=== PATIENT | male | born 1945 | race Caucasian/White ===

== ENCOUNTER 2021-12-30 11:02 | Outpatient (CLI) | payer MEDICARE, SELFPAY ==
[2021-12-30 11:26] LABS: Albumin* 4.5 g/dL (3.3-5.0)
[2021-12-30 11:27] LABS: Chloride* 105 mmol/L (96-114); Potassium* 4.9 mmol/L (3.6-5.1); Sodium* 138 mmol/L (135-149)
[2021-12-30 11:29] LABS: Aspartate Amino Transferase* 44 U/L (12-35); Bilirubin Total* 0.9 mg/dL (0.1-1.5); Blood Urea Nitrogen* 12 mg/dL (7-30); Carbon Dioxide* 25 mmol/L (20-32); Cholesterol* 186 mg/dL (90-199); Creatinine* 0.7 mg/dL (0.5-1.5); Estimated Glomerular Filt Rate 94 ml/min; Glucose* 97 mg/dL (60-115); Total Protein* 7.4 g/dL (6.0-8.3)
[2021-12-30 11:30] LABS: Alanine Aminotransferase* 27 U/L (4-50); Alkaline Phosphatase* 94 U/L (40-150); Calcium* 9.4 mg/dL (8.4-10.6); HDL Cholesterol* 52 mg/dL (>=40); LDL Cholesterol Calculated 118 mg/dL (<100); Triglycerides* 80 mg/dL (40-149)
[2021-12-30 11:57] LABS: PSA Screen* 0.62 ng/mL (0.10-4.00)
== END 2021-12-30 11:03 | disposition home or self-care (01) ==
PROVIDERS: PCP Family Medicine; Visit Provider Family Medicine
DX: E03.9 Hypothyroidism, unspecified (principal); E78.5 Hyperlipidemia, unspecified; Z12.5 Encounter for screening for malignant neoplasm of prostate
CPT/HCPCS: 80053; 80061; 84153; 84443

== ENCOUNTER 2022-06-02 19:27 | Observation (INO) | payer MEDICARE, SELFPAY ==
[2022-06-02] VITALS (22 sets, daily range): BP systolic 160–204; BP diastolic 79–100; PULSE 58–85; RESP 16–20; TEMP 37.3; O2SAT 96–100; BMI 25.1
--- NOTE | 2022-06-02 19:33 | ED.GENADULT ---
HPI - General Adult General Time Seen by Provider: 19:33 Date Seen: 06/02/22 Chief complaint: Neuro Symptoms/Altered Deficit Stated complaint: Confused Time Seen by Provider: 06/02/22 19:33 Source: patient, family ( is present) and RN notes reviewed Mode of arrival: ambulatory Limitations: no limitations History of Present Illness HPI narrative: Patient is a 76-year-old male brought in by family for concern of memory issues. Patient was fine yesterday, fine for most of the day today. He cannot tell me when he woke up, cannot tell me anything he has done today. He thinks he may have been working around the house but not able to provide specific details. His notes they were in [place] and had T earlier. He took a nap around 130 and got up about 330. He then proceeded to go to [employer], drove himself. She states when he got up at 3:30 a.m. he seemed normal. He came home from [employer], replaced a door handle, they heard him down stairs with the chain saw and went down to see what he was doing. It was then that they discovered he was not acting normally, could not remember anything. They winter in [place], have another home in [facility]. He does not remember being there last week. He cannot tell me what day it is, what year it is, what month it is. His notes he had a concussion last year, did fall on the ice this past and hit his head but was seemingly normal between earlier today and the time of the fall. Nursing staff thought maybe he had a slight droop on the left corner of his mouth and called a stroke code, I was there in attendance as soon as there was a concern regarding stroke. Related Data Home Medications Medication Instructions Recorded Confirmed aspirin 81 mg tablet,delayed 81 mg PO .QOD 01/06/22 05/06/22 release (Adult Aspirin Regimen) Previous Rx's Medication Instructions Recorded sildenafil 50 mg tablet 25 - 100 mg PO QDAY PRN sexual 01/16/22 activity #20 tabs Synthroid 125 mcg tablet 125 mcg PO QDAY #90 tabs 02/17/22 (levothyroxine) Allergies Allergy/AdvReac Type Severity Reaction Status Date / Time Sulfa (Sulfonamide Allergy Mild Hives Verified 06/02/22 19:46 Antibiotics) Review of Systems Status of ROS: Reports: 10 or more systems reviewed and unremarkable except as noted in History and below 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 Hebert 08/12/17 note. Transient global amnesia See scanned 04/10/15 [facility] neuro note. Carotid atherosclerosis Rodrigo bifurcations, mild. See scanned [facility] neuro note 04/10/15. Hypothyroidism Abstracted [facility] record. Dyslipidemia Abstracted [facility] record. Hearing loss Abstracted [facility] record. Peyronie's disease Abstracted [facility] record. Retinal microaneurysm, right eye Abstracted [facility] record. History of electroencephalogram 04/11/15, essentially normal. See scanned report. Surgical Problems: S/P hernia repair History of colonoscopy 11/20/10. Rcmnd 10Y repeat. No report, per [facility] record. Highest level of school completed/degree received: Master's degree Smoking Status: Never smoker Second hand tobacco smoke exposure: No How often do you have a drink containing alcohol: 2-3 times a week Alcohol type: other Alcohol type details: Daryl santana AUDIT-C Alcohol total score: 3 Non-prescribed substance use: marijuana (any form) Caffeine: Yes Little interest or pleasure in doing things: not at all Feeling down, depressed, or hopeless: not at all service: Yes Exam Const: Vital Signs, click to edit/add: Vital Signs - 24 hr 06/02/22 19:43 06/02/22 20:02 06/02/22 22:34 Temperature 99.1 F Pulse Rate Pulse Rate [Pulse Oximeter] 74 85 Respiratory Rate 20 16 Blood Pressure Blood Pressure [Ri ght Upper Arm] 193/99 H 160/86 H Pulse Oximetry 98 96 97 Oxygen Delivery Me thod Room Air Room Air 06/02/22 20:08 06/02/22 20:15 06/02/22 20:17 Temperature Pulse Rate 63 63 62 Pulse Rate [Pulse Oximeter] Respiratory Rate Blood Pressure 173/92 H Blood Pressure [Ri ght Upper Arm] Pulse Oximetry 98 98 98 Oxygen Delivery Me thod 06/02/22 20:30 06/02/22 20:32 06/02/22 20:47 Temperature Pulse Rate 68 68 61 Pulse Rate [Pulse Oximeter] Respiratory Rate Blood Pressure 168/85 H 191/96 H Blood Pressure [Ri ght Upper Arm] Pulse Oximetry 97 98 98 Oxygen Delivery Sc thod 06/02/22 20:48 06/02/22 21:00 06/02/22 21:02 Temperature Pulse Rate 63 60 66 Pulse Rate [Pulse Oximeter] Respiratory Rate Blood Pressure 172/98 H Blood Pressure [Ri ght Upper Arm] Pulse Oximetry 98 98 97 Oxygen Delivery Sc thod 06/02/22 21:15 06/02/22 21:17 06/02/22 21:30 Temperature Pulse Rate 68 67 69 Pulse Rate [Pulse Oximeter] Respiratory Rate Blood Pressure 175/88 H Blood Pressure [Ri ght Upper Arm] Pulse Oximetry 99 99 98 Oxygen Delivery Sc thod 06/02/22 21:32 06/02/22 21:45 06/02/22 21:47 Temperature Pulse Rate 70 58 L 58 L Pulse Rate [Pulse Oximeter] Respiratory Rate Blood Pressure 168/100 H 163/87 H Blood Pressure [Ri ght Upper Arm] Pulse Oximetry 98 100 99 Oxygen Delivery Sc thod 06/02/22 22:00 06/02/22 22:02 06/02/22 22:15 Temperature Pulse Rate 65 58 L 60 Pulse Rate [Pulse Oximeter] Respiratory Rate Blood Pressure 162/79 H Blood Pressure [Ri ght Upper Arm] Pulse Oximetry 97 98 97 Oxygen Delivery Sc thod 06/02/22 22:17 Temperature Pulse Rate 61 Pulse Rate [Pulse Oximeter] Respiratory Rate Blood Pressure 204/97 H Blood Pressure [Ri ght Upper Arm] Pulse Oximetry 99 Oxygen Delivery Me thod Documenting provider has reviewed patient's vital signs: yes Common normals: no apparent distress, average body habitus, healthy appearing, alert and well nourished General appearance: cooperative, comfortable, well kempt and well developed HENMT: Common normals: normocephalic, head/scalp atraumatic, hearing grossly normal bilaterally (With hearing aids in), external ears normal, external nose normal, nasal mucous membranes and turbinates normal, moist oral mucous membranes and oropharynx normal Head and scalp: normocephalic and atraumatic Nose: external nose normal and nasal mucous membranes and turbinates normal External ear: external ears normal Eye: Common normals: PERRL, EOMs intact bilaterally, conjunctivae normal and no scleral icterus Conjunctiva: conjunctiva(e) normal Pupil: PERRL Neck & C-Spine: Common normals: full ROM, no lymphadenopathy, supple, no meningeal signs, no JVD and thyroid normal Thyroid: thyroid normal Resp: Common normals: normal respiratory effort, no retractions, no use of accessory muscles and clear to auscultation bilaterally Auscultation: clear to auscultation bilaterally Cardio: Common normals: no JVD, regular rate, regular rhythm, S1 normal heart sound, S2 normal heart sound, no gallops, no clicks and no murmurs Rate: regular rate Rhythm: regular rhythm Heart sounds: S1 normal and S2 normal GI: Common normals: Normal to inspection, nondistended, normoactive bowel sounds present, soft to palpation, non-tender, no hepatosplenomegaly and no masses Palpation: soft and no hepatosplenomegaly Back & Pelvis: Common normals: thoracic and lumbar spine normal to inspection and no thoracic nor lumbar tenderness Extremity: Common normals: normal to inspection, full ROM, normal capillary refill, no joint enlargement, no clubbing, cyanosis or edema, no calf tenderness and no pedal edema Neuro: Mcintosh Coma Scale: document GCS findings Mcintosh coma scale eye opening: Spontaneous (4) Mcintosh coma scale verbal response: Orientated (5) Flo coma scale motor response: Obey commands (6) Flo coma scale total score: 15 Common normals: CN's II-XII intact bilaterally, moves all extremities, no focal motor deficits, no sensory deficits noted and gait normal Sensorium/orientation: alert Meningeal signs: no meningeal signs Speech: speech normal Other: I do not appreciate any facial drooping. He can closes eyes symmetrically, can puff out his cheeks without any difficulty and is symmetric. He has no immediate recollection of events but is able to tell as addresses of where he lives, his date of , knows his . It is seeming that his short-term memory is most affected here. Psych: Appearance: well ket Course Course Hospital Course: Patient's only identifiable neurologic changes memory which seems to be more short-term from what I can gather. Will have him on cardiac monitoring and pulse oximetry. We will get a head CT given that he had a recent fall. This could be an atypical presentation of a late brain bleed. Other intracranial pathology such as tumor small distribution stroke I suppose is possible. I note no motor neurologic deficits at this time. Will get appropriate labs. He will be monitored here. It is possible that we have a patient that is exhibiting recurrent transient global amnesia. Reevaluation(s) Reevaluation #1: Reviewed with patient that his head CT is not showing any acute change. He does not remember me questioning him or meeting me before but is starting to remember events. He does remember driving to [employer] but can not exactly remember what he purchased. He does not remember being down stairs with a chain saw. He does remember going to tea with his earlier today. His daughter is here now. Reviewed that his EKG was normal. Reviewed that I a need to see all of his labs still. He is obviously clearing. He does remember being diagnosed with transient global amnesia awhile back. He is now able to tell me it is 2022. Reviewed with him that he did not know what year it was when I 1st question him, he states he does not even remember me being in the room. He does not remember getting a head CT at this point. Will need to collect a screening COVID. notes that they both had COVID back in February. Time: 20:46 Consultations Consultation #1: Consulting radiology did inform me of normal/negative head CT results. Time: 20:18 Consultation #2: Spoke with the neurologist on-call at [place] Dr. Christine contreras. I had initially spoke with her about 9:02 p.m. but she had to get off the phone to take an emergent stroke call. She kindly called back at her 1st available moment and we reviewed the patient's case in entirety. She noted that she would be concerned about this being seizure activity as on his EEG in 2015 or 16 when he had it there was left temporal sharp waves but otherwise no eliptiform abnormality or EEG evidence of seizure. His MRI of his neck and brain showed some mild stenotic changes. She did suggest that we get an MRI, she was okay with this waiting until tomorrow as we do not have the capacity to do it in the evenings or after hours. She did recommend doing the CTA of his head neck. Patient is completely lucid at this time, or remembers me from coming in the 2nd time but still has amnesia for some events around coming in here. He still does not remember getting his head CT. Did subsequently speak with Dr. Macario the hospitalist. This patient has otherwise no neurologic changes. I cannot in vision that there is any way that there is going to be any large vessel occlusion that would be requiring treatment given his current status. If his imaging is not showing any reason for his symptoms, then he can be discharged for outpatient neurology an outpatient EEG. I have reviewed with him that he cannot drive until given clearance by Neurology. Time: 21:57 Vital Signs Vital signs: Initial Vital Signs Temperature 99.1 F 06/02/22 19:43 Temperature Source Temporal Artery Scan 06/02/22 19:43 Pulse Rate 74 06/02/22 19:43 Pulse Rhythm 06/02/22 19:43 Pulse Strength 3+ Normal 06/02/22 19:43 Respiratory Rate 20 06/02/22 19:43 Blood Pressure 193/99 H 06/02/22 19:43 Blood Pressure Mean 130 06/02/22 19:43 Pulse Oximetry 98 06/02/22 19:43 Oxygen Delivery Method 06/02/22 19:43 Vital Signs Temperature 99.1 F 06/02/22 19:43 Pulse Rate 74 06/02/22 19:43 Respiratory Rate 20 06/02/22 19:43 Blood Pressure 193/99 H 06/02/22 19:43 Pulse Oximetry 98 06/02/22 19:43 Oxygen Delivery Method 06/02/22 19:43 Temperature 97.7 F 06/03/22 00:05 Pulse Rate 69 06/03/22 00:05 Respiratory Rate 16 06/03/22 00:05 Blood Pressure 173/91 H 06/03/22 00:05 Pulse Oximetry 99 06/03/22 00:05 Oxygen Delivery Method 06/03/22 00:05 Medical Decision Making Medical Records Medical records narrative: In his list of medical diagnoses that transferred over from the prior record, can see notation of a [facility] note from 04/10/2015 from Neurology that is reportedly scanned into our old EMR. This was documenting transient global amnesia. I will go back into our old record and see if I can find that. Lab Data Lab results reviewed: Yes I reviewed the patient's lab results Labs: Lab Results 06/02/22 06/02/22 06/02/22 Range/Units 19:41 19:41 19:41 WBC 6.49 (4.50-11.00) K/uL RBC 5.18 (4.30-5.90) m/uL Hgb 15.8 (13.5-17.5) gm/dL Hct 47.6 (37.0-53.0) % MCV 92 (80-100) fL MCH 31 (26-34) pg MCHC 33 (32-36) gm/dL RDW Coeff of Sky 13.0 (11.5-15.5) % Plt Count 251 (140-440) K/uL Neut % (Auto) 47.7 (42.0-72.0) % Lymph % (Auto) 35.1 (20-44) % [place] % (Auto) 9.6 (0.0-11.0) % Eos % (Auto) 6.2 (0.0-7.0) % Baso % (Auto) 0.5 (0.0-3.0) % Neut # (Auto) 3.10 (1.7-7.0) K/uL Lymph # (Auto) 2.28 (0.90-2.90) K/uL [place] # (Auto) 0.60 (0.00-0.90) K/UL Eos # (Auto) 0.40 (0.00-0.50) K/uL Baso # (Auto) 0.03 (0.00-0.30) K/uL ESR 5 (2-15) mm/hr Sodium 139 (135-149) mmol/L Potassium 4.3 (3.6-5.1) mmol/L Chloride 108 (96-114) mmol/L Carbon Dioxide 25 (20-32) mmol/L BUN 14 (7-30) mg/dL Creatinine 0.8 (0.5-1.5) mg/dL Estimated Creat Clear 66.82 Estimated GFR 91 ml/min Glucose 114 (60-115) mg/dL Lactate (0.5-1.9) mmol/L Calcium 9.0 (8.4-10.6) mg/dL Total Bilirubin 0.5 (0.1-1.5) mg/dL AST 25 (12-35) U/L ALT 25 (4-50) U/L Alkaline Phosphatase 90 (40-150) U/L C-Reactive Protein 0.5 (0.5-1.0) mg/dL Total Protein 7.9 (6.0-8.3) g/dL Albumin 4.4 (3.3-5.0) g/dL Urine Color (Yellow) Urine Appearance (Clear) Urine pH (5.0-8.5) Ur Specific [place] (1.000-1.030) Urine Protein (Negative) Urine Glucose (UA) (Negative) Urine Ketones (Negative) Urine Blood (Negative) Urine Nitrite (Negative) Urine Bilirubin (Negative) Urine Urobilinogen (0.2-1.0) Ur Leukocyte Esterase (Negative) Urine RBC (0-2) Urine WBC (0-5) Ur Squamous Epith Cells (None-Few) Urine Bacteria (None) Urine Opiates Screen (Negative) Ur Oxycodone Screen (Negative) Urine Methadone Screen (Negative) Ur Propoxyphene Screen (Negative) Ur Barbiturates Screen (Negative) U Tricyclic Antidepress (Negative) Ur Phencyclidine Scrn (Negative) Ur Amphetamines Screen (Negative) U Methamphetamines Scrn (Negative) U Benzodiazepines Scrn (Negative) Urine Cocaine Screen (Negative) U Marijuana (THC) Screen (Negative) Ur Drug Screen Comment Ethyl Alcohol < 0.01 L (0.01-0.03) % SARS-CoV-2 (PCR) (Negative) Influenza Type A (PCR) (Negative) Influenza Type B (PCR) (Negative) 06/02/22 06/02/22 06/02/22 Range/Units 19:41 22:10 23:00 WBC (4.50-11.00) K/uL RBC (4.30-5.90) m/uL Hgb (13.5-17.5) gm/dL Hct (37.0-53.0) % MCV (80-100) fL MCH (26-34) pg MCHC (32-36) gm/dL RDW Coeff of Sky (11.5-15.5) % Plt Count (140-440) K/uL Neut % (Auto) (42.0-72.0) % Lymph % (Auto) (20-44) % [place] % (Auto) (0.0-11.0) % Eos % (Auto) (0.0-7.0) % Baso % (Auto) (0.0-3.0) % Neut # (Auto) (1.7-7.0) K/uL Lymph # (Auto) (0.90-2.90) K/uL [place] # (Auto) (0.00-0.90) K/UL Eos # (Auto) (0.00-0.50) K/uL Baso # (Auto) (0.00-0.30) K/uL ESR (2-15) mm/hr Sodium (135-149) mmol/L Potassium (3.6-5.1) mmol/L Chloride (96-114) mmol/L Carbon Dioxide (20-32) mmol/L BUN (7-30) mg/dL Creatinine (0.5-1.5) mg/dL Estimated Creat Clear Estimated GFR ml/min Glucose (60-115) mg/dL Lactate 1.0 (0.5-1.9) mmol/L Calcium (8.4-10.6) mg/dL Total Bilirubin (0.1-1.5) mg/dL AST (12-35) U/L ALT (4-50) U/L Alkaline Phosphatase (40-150) U/L C-Reactive Protein (0.5-1.0) mg/dL Total Protein (6.0-8.3) g/dL Albumin (3.3-5.0) g/dL Urine Color Yellow (Yellow) Urine Appearance Clear (Clear) Urine pH 5.5 (5.0-8.5) Ur Specific [place] 1.015 (1.000-1.030) Urine Protein Negative (Negative) Urine Glucose (UA) Negative (Negative) Urine Ketones Trace A (Negative) Urine Blood Negative (Negative) Urine Nitrite Negative (Negative) Urine Bilirubin Negative (Negative) Urine Urobilinogen 0.2 (0.2-1.0) Ur Leukocyte Esterase Negative (Negative) Urine RBC 0-2 (0-2) Urine WBC 0-2 (0-5) Ur Squamous Epith Cells Few (None-Few) Urine Bacteria Few A (None) Urine Opiates Screen (Negative) Ur Oxycodone Screen (Negative) Urine Methadone Screen (Negative) Ur Propoxyphene Screen (Negative) Ur Barbiturates Screen (Negative) U Tricyclic Antidepress (Negative) Ur Phencyclidine Scrn (Negative) Ur Amphetamines Screen (Negative) U Methamphetamines Scrn (Negative) U Benzodiazepines Scrn (Negative) Urine Cocaine Screen (Negative) U Marijuana (THC) Screen (Negative) Ur Drug Screen Comment Ethyl Alcohol (0.01-0.03) % SARS-CoV-2 (PCR) Negative SARS-CoV-2 (Negative) Influenza Type A (PCR) Negative PCR FLU A (Negative) Influenza Type B (PCR) Negative PCR FLU B (Negative) 06/02/22 Range/Units 23:00 WBC (4.50-11.00) K/uL RBC (4.30-5.90) m/uL Hgb (13.5-17.5) gm/dL Hct (37.0-53.0) % MCV (80-100) fL MCH (26-34) pg MCHC (32-36) gm/dL RDW Coeff of Sky (11.5-15.5) % Plt Count (140-440) K/uL Neut % (Auto) (42.0-72.0) % Lymph % (Auto) (20-44) % [place] % (Auto) (0.0-11.0) % Eos % (Auto) (0.0-7.0) % Baso % (Auto) (0.0-3.0) % Neut # (Auto) (1.7-7.0) K/uL Lymph # (Auto) (0.90-2.90) K/uL [place] # (Auto) (0.00-0.90) K/UL Eos # (Auto) (0.00-0.50) K/uL Baso # (Auto) (0.00-0.30) K/uL ESR (2-15) mm/hr Sodium (135-149) mmol/L Potassium (3.6-5.1) mmol/L Chloride (96-114) mmol/L Carbon Dioxide (20-32) mmol/L BUN (7-30) mg/dL Creatinine (0.5-1.5) mg/dL Estimated Creat Clear Estimated GFR ml/min Glucose (60-115) mg/dL Lactate (0.5-1.9) mmol/L Calcium (8.4-10.6) mg/dL Total Bilirubin (0.1-1.5) mg/dL AST (12-35) U/L ALT (4-50) U/L Alkaline Phosphatase (40-150) U/L C-Reactive Protein (0.5-1.0) mg/dL Total Protein (6.0-8.3) g/dL Albumin (3.3-5.0) g/dL Urine Color (Yellow) Urine Appearance (Clear) Urine pH (5.0-8.5) Ur Specific [place] (1.000-1.030) Urine Protein (Negative) Urine Glucose (UA) (Negative) Urine Ketones (Negative) Urine Blood (Negative) Urine Nitrite (Negative) Urine Bilirubin (Negative) Urine Urobilinogen (0.2-1.0) Ur Leukocyte Esterase (Negative) Urine RBC (0-2) Urine WBC (0-5) Ur Squamous Epith Cells (None-Few) Urine Bacteria (None) Urine Opiates Screen Negative (Negative) Ur Oxycodone Screen Negative (Negative) Urine Methadone Screen Negative (Negative) Ur Propoxyphene Screen Negative (Negative) Ur Barbiturates Screen Negative (Negative) U Tricyclic Antidepress Negative (Negative) Ur Phencyclidine Scrn Negative (Negative) Ur Amphetamines Screen Negative (Negative) U Methamphetamines Scrn Negative (Negative) U Benzodiazepines Scrn Negative (Negative) Urine Cocaine Screen Negative (Negative) U Marijuana (THC) Screen Negative (Negative) Ur Drug Screen Comment See Note Ethyl Alcohol (0.01-0.03) % SARS-CoV-2 (PCR) (Negative) Influenza Type A (PCR) (Negative) Influenza Type B (PCR) (Negative) Imaging Data CT scan - head: My impression: Did look at his head CT preliminarily, did not appreciate acute pathology but certainly need to await Radiology over-read. Radiologist's impression: Patient: RAFAEL HERNANDEZ Facility:?[facility] Patient ID:?[id number] Site Patient ID:?[id number]. Site :?[id number] Study:?CT Head w/o Contrast Stroke Protocol-06/02/2022 7:54:18 PM Ordering Physician:Katharine Fabian Final Report: INDICATION: sudden memory issues CT HEAD WITHOUT CONTRAST TECHNIQUE: Multiple axial CT images were performed through the head without intravenous contrast administration. COMPARISON: 05/03/[address] FINDINGS: No acute intracranial hemorrhage is identified. No extra-axial collections are evident and there is no mass effect or midline shift. There is mild diffuse age-related brain atrophy. Ventricular size and configuration are within normal limits for the patient`s age. Wells-white differentiation is within normal limits. There is unchanged mild patchy hypodensity in the periventricular white matter, a nonspecific finding which most likely reflects chronic small vessel ischemic change. Osseous structures are within normal limits and no fractures are seen. Included portions of the paranasal sinuses and mastoid air cells are normally aerated. IMPRESSION: 1. No acute intracranial abnormality identified. 2. Mild age-related brain atrophy and white matter hypodensity consistent with chronic small vessel ischemic change. Report called to Dr. Newberry at 8:18 pm. LEXX JESUS MD [employer] Please note that all CT scans at this facility use dose modulation, iterative reconstruction, and/or weight-based dosing when appropriate to reduce radiation dose to as low as reasonably achievable. Dictated by: Berry Jesus MD @ 06/02/2022 20:20:42 CT angio head neck: Radiologist's impression: Pending at time of admission. ECG Data Attestation: I personally reviewed and interpreted this ECG as follows: (Sinus rhythm, 75 beats per minute. No ischemia. QT corrected 419 milliseconds.) Prior ECG tracings: not available for review Critical Care Time Critical Care Time Critical Care Time: No Discharge Plan Discharge Clinical Impression: Memory change Patient Disposition: Admitted As Inpatient Condition: Stable
--- NOTE | 2022-06-02 19:41 | CRLHL7_ITS ---
For Patients: As a result of the Century Cures Act, medical imaging exams and procedure reports are released immediately into your electronic medical record. You may view this report before your referring provider. If you have questions, please contact your health care provider. INDICATION: sudden memory issues CT HEAD WITHOUT CONTRAST TECHNIQUE: Multiple axial CT images were performed through the head without intravenous contrast administration. COMPARISON: 05/03/[address] FINDINGS: No acute intracranial hemorrhage is identified. No extra-axial collections are evident and there is no mass effect or midline shift. There is mild diffuse age-related brain atrophy. Ventricular size and configuration are within normal limits for the patient`s age. Wells-white differentiation is within normal limits. There is unchanged mild patchy hypodensity in the periventricular white matter, a nonspecific finding which most likely reflects chronic small vessel ischemic change. Osseous structures are within normal limits and no fractures are seen. Included portions of the paranasal sinuses and mastoid air cells are normally aerated. IMPRESSION: 1. No acute intracranial abnormality identified. 2. Mild age-related brain atrophy and white matter hypodensity consistent with chronic small vessel ischemic change. Report called to Dr. Newberry at 8:18 pm. LEXX JESUS MD [employer] Please note that all CT scans at this facility use dose modulation, iterative reconstruction, and/or weight-based dosing when appropriate to reduce radiation dose to as low as reasonably achievable. Dictated by: Berry Jesus MD @ 06/02/2022 20:20:42 (Electronically Signed)
--- NOTE | 2022-06-02 19:42 | ED.NURSE ---
Patient brought back from triage immediately and provider in to see patient. EKG and IV also completed at this time.
[2022-06-02 19:57] LABS: Basophils Absolute Auto 0.03 K/uL (0.00-0.30); Basophils Percent Auto 0.5 % (0.0-3.0); Eosinophils Percent Auto 6.2 % (0.0-7.0); Hematocrit 47.6 % (37.0-53.0); Hemoglobin* 15.8 gm/dL (13.5-17.5); Immature Granulocytes Abs Auto 0.06 K/uL (0.00-0.30); Immature Granulocytes Pct Auto 0.9 %; Lymphocytes Absolute Auto 2.28 K/uL (0.90-2.90); Lymphocytes Percent Auto 35.1 % (20-44); Mean Corpuscular HGB Conc 33 gm/dL (32-36); Mean Corpuscular Hemoglobin 31 pg (26-34); Mean Corpuscular Volume 92 fL (80-100); Monocytes Percent Auto 9.6 % (0.0-11.0); Neutrophils Percent Auto 47.7 % (42.0-72.0); Platelet Count* 251 K/uL (140-440); Red Blood Count 5.18 m/uL (4.30-5.90); White Blood Count* 6.49 K/uL (4.50-11.00)
[2022-06-02 19:58] LABS: Slide Review Reflex No
--- NOTE | 2022-06-02 19:59 | ED.NURSE ---
While charting in the room, reports to nurse that she remembered her fell 4 days ago when they were in [place], [place] visiting family. It was an unwitnessed fall, pt cannot remember telling his he fell. Pt cannot remember the fall either. also reports pt was very nauseous last night before bed.
[2022-06-02 20:09] LABS: Albumin* 4.4 g/dL (3.3-5.0); Chloride* 108 mmol/L (96-114); Sodium* 139 mmol/L (135-149)
[2022-06-02 20:10] LABS: Potassium* 4.3 mmol/L (3.6-5.1)
[2022-06-02 20:11] LABS: Bilirubin Total* 0.5 mg/dL (0.1-1.5); Creatinine* 0.8 mg/dL (0.5-1.5); Est. Creatinine Clearance* 66.82; Estimated Glomerular Filt Rate 91 ml/min
[2022-06-02 20:12] LABS: Alanine Aminotransferase* 25 U/L (4-50); Alkaline Phosphatase* 90 U/L (40-150); Aspartate Amino Transferase* 25 U/L (12-35); Blood Urea Nitrogen* 14 mg/dL (7-30); Carbon Dioxide* 25 mmol/L (20-32); Glucose* 114 mg/dL (60-115); Total Protein* 7.9 g/dL (6.0-8.3)
[2022-06-02 20:15] LABS: C Reactive Protein* 0.5 mg/dL (0.5-1.0); Ethanol* < 0.01 % (0.01-0.03)
[2022-06-02 21:06] LABS: Erythrocyte SedimentationRate* 5 mm/hr (2-15)
--- NOTE | 2022-06-02 22:06 | CRLHL7_ITS ---
For Patients: As a result of the Century Cures Act, medical imaging exams and procedure reports are released immediately into your electronic medical record. You may view this report before your referring provider. If you have questions, please contact your health care provider. INDICATION: Acute stroke. TECHNIQUE: CTA head with contrast bolus tracking and 3D MIP reconstruction. FINDINGS: There is scattered intracranial atherosclerotic disease. There is otherwise normal opacification of the intracranial vasculature. There is no large vessel occlusion. No aneurysm is identified. IMPRESSION: Unremarkable head CTA. Please note that all CT scans at this facility use dose modulation, iterative reconstruction, and/or weight-based dosing when appropriate to reduce radiation dose to as low as reasonably achievable. Dictated by Ludwig Richards MD @ 06/03/2022 9:13:13 AM (Electronically Signed)
--- NOTE | 2022-06-02 22:06 | CRLHL7_ITS ---
For Patients: As a result of the Century Cures Act, medical imaging exams and procedure reports are released immediately into your electronic medical record. You may view this report before your referring provider. If you have questions, please contact your health care provider. INDICATION: Acute stroke. TECHNIQUE: CTA neck with contrast bolus tracking and 3D MIP reconstruction. FINDINGS: There is carotid atherosclerosis. There is no significant carotid or vertebral artery stenosis or dissection. The soft tissues of the neck are within normal limits. The cervical spine is in normal alignment. IMPRESSION: No significant carotid or vertebral artery stenosis or dissection. Please note that all CT scans at this facility use dose modulation, iterative reconstruction, and/or weight-based dosing when appropriate to reduce radiation dose to as low as reasonably achievable. Dictated by Ludwig Richards MD @ 06/03/2022 9:15:16 AM (Electronically Signed)
[2022-06-02 23:19] LABS: Appearance Urine Clear (Clear); Bilirubin Urine Negative (Negative); Blood Urine Negative (Negative); Color Urine Yellow (Yellow); Glucose Urine Negative (Negative); Ketones Urine Trace (Negative); Leukocyte Esterase Urine Negative (Negative); Nitrite Urine Negative (Negative); Protein Urine Negative (Negative); Specific Gravity Urine 1.015 (1.000-1.030); Urobilinogen Urine 0.2 (0.2-1.0); pH Urine 5.5 (5.0-8.5)
[2022-06-02 23:19] LABS: PCR FLU A Negative PCR FLU A (Negative); PCR FLU B Negative PCR FLU B (Negative)
[2022-06-02 23:20] LABS: Amphetamine Screen Urine Negative (Negative); Barbiturate Screen Urine Negative (Negative); Benzodiazepines Screen Urine Negative (Negative); Cannabinoid Screen Urine Negative (Negative); Cocaine Screen Urine Negative (Negative); Methadone Screen Urine Negative (Negative); Methamphetamines Screen Urine Negative (Negative); Opiate Screen Urine Negative (Negative); Oxycodone Screen Urine Negative (Negative); Phencyclidine Screen Urine Negative (Negative); Tricyclic Antidepressant Urine Negative (Negative)
[2022-06-02 23:28] LABS: SARS PCR* Negative SARS-CoV-2 (Negative)
[2022-06-02 23:43] LABS: Bacteria Urine Few; RBC Urine 0-2 (0-2); Squamous Epithelial Cell Urine Few (None-Few); WBC Urine 0-2 (0-5)
[2022-06-03 00:05] VITALS: BP 173/91; PULSE 69; RESP 16; TEMP 36.5; O2SAT 99; BMI 21.2
[2022-06-03 00:31] LABS: TSH With Reflex to FT4* 0.219 uIU/mL (0.270-4.200)
--- NOTE | 2022-06-03 01:03 | P.IMCN_ITS ---
Date of Consult Consult date: 06/03/22 Primary Care Provider: Rafa Ventura MD Consult Narrative Reason for consult: fall weakness Narrative: Brian Boo is a 77 year old male -year-old male with past medical history with alcohol intoxication and hyponatremia with multiple falls at home, hypertension, dementia, chronic hyponatremia who presented to the ED with gait instability. He lives at home with his elderly brother. Patient reported a fall on the ground by his brother with his son has been contacted to get him up. No LOC. No seizures. He was sent to the ED for further evaluation. In the ED vital signs shows blood pressure of 141/71, respiration rate of 16, heart rate of 45, patient satting well on room air. Labs show sodium of 129, potassium of 3.3, creatinine of 0.7, LFT are within no rmal limits. His albumin is 3.5, magnesium is 2.1 his CBC with differential shows WBC of 5.4, hemoglobin of 13.2, platelet of 198. COVID is negative. His CT head without contrast showed no acute large tentorial infarct, no intracranial hemorrhage or hematoma, no fracture is seen, multiple foci of acute sinusitis noted. Patient was attempted to ambulate in the ED but was unable to ambulate well therefore was requested for the patient to be admitted for further evaluation and treatment. 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 Hebert 08/12/17 note. Transient global amnesia See scanned 04/10/15 [place] neuro note. Carotid atherosclerosis Rodrigo bifurcations, mild. See scanned [place] neuro note 04/10/15. Hypothyroidism Abstracted [place] record. Dyslipidemia Abstracted [place] record. Hearing loss Abstracted [place] record. Peyronie's disease Abstracted [place] record. Retinal microaneurysm, right eye Abstracted [place] record. History of electroencephalogram 04/11/15, essentially normal. See scanned report. Surgical Problems: S/P hernia repair History of colonoscopy 11/20/10. Rcmnd 10Y repeat. No report, per [place] record. Highest level of school completed/degree received: Master's degree Smoking Status: Never smoker Second hand tobacco smoke exposure: No How often do you have a drink containing alcohol: 2-3 times a week Alcohol type: other Alcohol type details: Daryl santana AUDIT-C Alcohol total score: 3 Non-prescribed substance use: marijuana (any form) Caffeine: Yes Little interest or pleasure in doing things: not at all Feeling down, depressed, or hopeless: not at all service: Yes Meds Home Medications and Allergies Home Medications Medication Instructions Recorded Confirmed Type aspirin 81 mg tablet,delayed 81 mg PO .QOD 01/06/22 05/06/22 History release (Adult Aspirin Regimen) Allergies Allergy/AdvReac Type Severity Reaction Status Date / Time Sulfa (Sulfonamide Allergy Mild Hives Verified 06/02/22 19:46 Antibiotics) Exam Narrative: Exam Narrative: Exam (performed via interactive video with assistance of bedside nurse): General: [alert, cooperative, no acute distress] HEENT: [Pupils reported ERRL] [, oral mucosa pink and moist without erythema] Lungs: [clear to auscultation bilaterally without crackle or wheeze] CV: [regular rate and rhythm without loud murmur rub or gallop 1+ edmea in the LE b/l] Abd: [bowel sounds present, denies tenderness and does not exhibit signs of pain with palpation done by bedside nurse] Ext: [no pitting edema noted] Skin: [no rashes, bruises or lesions appreciated on gross visualization of exposed skin] Neuro: [alert, oriented x 3. CN III -VII, XI, XII grossly intact, moves all extremities without any significant focal deficit appreciated by nurse] Const: Vital Signs, click to edit/add: Vital Signs - 24 hr 06/02/22 19:43 06/02/22 20:02 06/02/22 22:34 Temperature 99.1 F Pulse Rate Pulse Rate [Left P ulse Oximeter] Pulse Rate [Pulse Oximeter] 74 85 Respiratory Rate 20 16 Blood Pressure Blood Pressure [Ri ght Arm] Blood Pressure [Ri ght Upper Arm] 193/99 H 160/86 H Pulse Oximetry 98 96 97 Oxygen Delivery Me thod Room Air Room Air 06/02/22 20:08 06/02/22 20:15 06/02/22 20:17 Temperature Pulse Rate 63 63 62 Pulse Rate [Left P ulse Oximeter] Pulse Rate [Pulse Oximeter] Respiratory Rate Blood Pressure 173/92 H Blood Pressure [Ri ght Arm] Blood Pressure [Ri ght Upper Arm] Pulse Oximetry 98 98 98 Oxygen Delivery Me thod 06/02/22 20:30 06/02/22 20:32 06/02/22 20:47 Temperature Pulse Rate 68 68 61 Pulse Rate [Left P ulse Oximeter] Pulse Rate [Pulse Oximeter] Respiratory Rate Blood Pressure 168/85 H 191/96 H Blood Pressure [Ri ght Arm] Blood Pressure [Ri ght Upper Arm] Pulse Oximetry 97 98 98 Oxygen Delivery Me thod 06/02/22 20:48 06/02/22 21:00 06/02/22 21:02 Temperature Pulse Rate 63 60 66 Pulse Rate [Left P ulse Oximeter] Pulse Rate [Pulse Oximeter] Respiratory Rate Blood Pressure 172/98 H Blood Pressure [Ri ght Arm] Blood Pressure [Ri ght Upper Arm] Pulse Oximetry 98 98 97 Oxygen Delivery Me thod 06/02/22 21:15 06/02/22 21:17 06/02/22 21:30 Temperature Pulse Rate 68 67 69 Pulse Rate [Left P ulse Oximeter] Pulse Rate [Pulse Oximeter] Respiratory Rate Blood Pressure 175/88 H Blood Pressure [Ri ght Arm] Blood Pressure [Ri ght Upper Arm] Pulse Oximetry 99 99 98 Oxygen Delivery Me thod 06/02/22 21:32 06/02/22 21:45 06/02/22 21:47 Temperature Pulse Rate 70 58 L 58 L Pulse Rate [Left P ulse Oximeter] Pulse Rate [Pulse Oximeter] Respiratory Rate Blood Pressure 168/100 H 163/87 H Blood Pressure [Ri ght Arm] Blood Pressure [Ri ght Upper Arm] Pulse Oximetry 98 100 99 Oxygen Delivery Me thod 06/02/22 22:00 06/02/22 22:02 06/02/22 22:15 Temperature Pulse Rate 65 58 L 60 Pulse Rate [Left P ulse Oximeter] Pulse Rate [Pulse Oximeter] Respiratory Rate Blood Pressure 162/79 H Blood Pressure [Ri ght Arm] Blood Pressure [Ri ght Upper Arm] Pulse Oximetry 97 98 97 Oxygen Delivery Me thod 06/02/22 22:17 06/03/22 00:05 Temperature 97.7 F Pulse Rate 61 Pulse Rate [Left P ulse Oximeter] 69 Pulse Rate [Pulse Oximeter] Respiratory Rate 16 Blood Pressure 204/97 H Blood Pressure [Ri ght Arm] 173/91 H Blood Pressure [Ri ght Upper Arm] Pulse Oximetry 99 99 Oxygen Delivery Me thod Room Air Labs Labs: Short CBC 06/02/22 Range/Units 19:41 WBC 6.49 (4.50-11.00) K/uL Hgb 15.8 (13.5-17.5) gm/dL Hct 47.6 (37.0-53.0) % Plt Count 251 (140-440) K/uL BMP 06/02/22 19:41 Sodium 139 Potassium 4.3 Chloride 108 Carbon Dioxide 25 BUN 14 Creatinine 0.8 Glucose 114 Calcium 9.0 Liver Function 06/02/22 Range/Units 19:41 Total Bilirubin 0.5 (0.1-1.5) mg/dL AST 25 (12-35) U/L ALT 25 (4-50) U/L Alkaline Phosphatase 90 (40-150) U/L Albumin 4.4 (3.3-5.0) g/dL Urine 06/02/22 Range/Units 23:00 Urine Color Yellow (Yellow) Urine Appearance Clear (Clear) Urine pH 5.5 (5.0-8.5) Ur Specific [place] 1.015 (1.000-1.030) Urine Protein Negative (Negative) Urine Glucose (UA) Negative (Negative) Assessment and Plan Assessment and plan (1) Memory change: Status: Acute (2) Epistaxis, recurrent: Status: Acute (3) Erectile dysfunction: Status: Acute (4) Fall: Status: Acute Plan # Weakness # hyponatremia with possible beer potamani # HTN # ETOH use with no hx of w/ draw 3 - 4 beers per day with last drink 1 day ago - will admit with tele monitor - trend trop, check TSH, check urine lytes, Ha1c - check LE doppler, check echo for edema - lasix 20mg per day - CIWA and w/ draw protocol ordered - PT/oT Full code
[2022-06-03 01:22] LABS: Free T4 Free Thyroxine* 1.51 ng/dL (0.70-1.85)
--- NOTE | 2022-06-03 02:13 | PM.IMCN1 ---
Date of Consult Consult date: 06/03/22 Primary Care Provider: Rafa Ventura MD Consult Narrative Narrative: Brian Boo is a 77 year old male with past medical history of dyslipidemia, hypothyroidism, central sleep apnea, transient global amnesia, was brought in by family for concerning for memory issue.? Patient took a nap around 130 and got up around 330, he went to [employer] drove himself.? He came home from [employer] and placed a door handle and they heard him downstairs with a chainsaw and went to see what he was doing he was then was discovered that he was acting abnormal, could not remember anything.? He spent the winter in [place] and have another home in [facility] and the patient could not remember being the last week.? His noted he has some confusion,? he fell on ice this past and but did not hit his head but was seemingly normal until earlier today.? Nursing staff thought he may have had a facial droop on the left corner of his mouth and called a code stroke in the ED. His vital signs with temperature of 99.1, pulse of 74, respiration rate of 20, blood pressure of 193/99.? His labs shows normal WBC of 6.49, hemoglobin of 15.8, platelet of 251, lactate is normal of 1, his sodium was 139, potassium was 4.3, creatinine is 0.8, LFT are within normal limit.? His CT head without contrast showed no acute intracranial abnormality, age-related brain atrophy and white matter hypodensity consistent with chronic small vessel ischemic changes.? He CTA of the head and neck shows some mild stenotic changes.? Neuro was contacted suggesting that an MRI to be obtained, along with a CTA.? And recommended for further evaluation for stroke as well as possible evaluation for seizure with EEG.? He did have an EEG with left temporal sharp wave but otherwise no epileptiform abnormalities.? Given his symptoms he will be admitted for further evaluation and treatment.? Patient denies chest pain, shortness of breath nausea vomiting abdominal pain at this time.? He has no recent travel, no sick contact, he recently changes from generics levothyroxine to Synthroid but no other changes in medication [id number] notable.? 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 Hebert 08/12/17 note. Transient global amnesia See scanned 04/10/15 [place] neuro note. Carotid atherosclerosis Rodrigo bifurcations, mild. See scanned [place] neuro note 04/10/15. Hypothyroidism Abstracted [place] record. Dyslipidemia Abstracted [place] record. Hearing loss Abstracted [place] record. Peyronie's disease Abstracted [place] record. Retinal microaneurysm, right eye Abstracted [place] record. History of electroencephalogram 04/11/15, essentially normal. See scanned report. Surgical Problems: S/P hernia repair History of colonoscopy 11/20/10. Rcmnd 10Y repeat. No report, per [place] record. Highest level of school completed/degree received: Master's degree Smoking Status: Never smoker Second hand tobacco smoke exposure: No How often do you have a drink containing alcohol: 2-3 times a week Alcohol type: other Alcohol type details: Daryl santana AUDIT-C Alcohol total score: 3 Non-prescribed substance use: marijuana (any form) Caffeine: Yes Little interest or pleasure in doing things: not at all Feeling down, depressed, or hopeless: not at all service: Yes Meds Home Medications and Allergies Home Medications Medication Instructions Recorded Confirmed Type aspirin 81 mg tablet,delayed 81 mg PO .QOD 01/06/22 05/06/22 History release (Adult Aspirin Regimen) Allergies Allergy/AdvReac Type Severity Reaction Status Date / Time Sulfa (Sulfonamide Allergy Mild Hives Verified 06/02/22 19:46 Antibiotics) Exam Narrative: Exam Narrative: Exam (performed via interactive video with assistance of bedside nurse): General: [alert, cooperative, no acute distress] HEENT: [Pupils reported ERRL] [, oral mucosa pink and moist without erythema] Lungs: [clear to auscultation bilaterally without crackle or wheeze] CV: [regular rate and rhythm without loud murmur rub or gallop] Abd: [bowel sounds present, denies tenderness and does not exhibit signs of pain with palpation done by bedside nurse] Ext: [no pitting edema noted] Skin: [no rashes, bruises or lesions appreciated on gross visualization of exposed skin] Neuro: [alert, oriented x 3. CN III -VII, XI, XII grossly intact, moves all extremities without any significant focal deficit appreciated by nurse] Const: Vital Signs, click to edit/add: Vital Signs - 24 hr 06/02/22 19:43 06/02/22 20:02 06/02/22 22:34 Temperature 99.1 F Pulse Rate Pulse Rate [Left P ulse Oximeter] Pulse Rate [Pulse Oximeter] 74 85 Respiratory Rate 20 16 Blood Pressure Blood Pressure [Ri ght Arm] Blood Pressure [Ri ght Upper Arm] 193/99 H 160/86 H Pulse Oximetry 98 96 97 [facility] 06/02/22 20:08 06/02/22 20:15 06/02/22 20:17 Temperature Pulse Rate 63 63 62 Pulse Rate [Left P ulse Oximeter] Pulse Rate [Pulse Oximeter] Respiratory Rate Blood Pressure 173/92 H Blood Pressure [Ri ght Arm] Blood Pressure [Ri ght Upper Arm] Pulse Oximetry 98 98 98 [facility] 06/02/22 20:30 06/02/22 20:32 06/02/22 20:47 Temperature Pulse Rate 68 68 61 Pulse Rate [Left P ulse Oximeter] Pulse Rate [Pulse Oximeter] Respiratory Rate Blood Pressure 168/85 H 191/96 H Blood Pressure [Ri ght Arm] Blood Pressure [Ri ght Upper Arm] Pulse Oximetry 97 98 98 [facility] 06/02/22 20:48 06/02/22 21:00 06/02/22 21:02 Temperature Pulse Rate 63 60 66 Pulse Rate [Left P ulse Oximeter] Pulse Rate [Pulse Oximeter] Respiratory Rate Blood Pressure 172/98 H Blood Pressure [Ri ght Arm] Blood Pressure [Ri ght Upper Arm] Pulse Oximetry 98 98 [address] [facility] 06/02/22 21:15 06/02/22 21:17 06/02/22 21:30 Temperature Pulse Rate 68 67 69 Pulse Rate [Left P ulse Oximeter] Pulse Rate [Pulse Oximeter] Respiratory Rate Blood Pressure 175/88 H Blood Pressure [Ri ght Arm] Blood Pressure [Ri ght Upper Arm] Pulse Oximetry 99 99 98 Oxygen Delivery Me thod 06/02/22 21:32 06/02/22 21:45 06/02/22 21:47 Temperature Pulse Rate 70 58 L 58 L Pulse Rate [Left P ulse Oximeter] Pulse Rate [Pulse Oximeter] Respiratory Rate Blood Pressure 168/100 H 163/87 H Blood Pressure [Ri ght Arm] Blood Pressure [Ri ght Upper Arm] Pulse Oximetry 98 100 99 Oxygen Delivery Me thod 06/02/22 22:00 06/02/22 22:02 06/02/22 22:15 Temperature Pulse Rate 65 58 L 60 Pulse Rate [Left P ulse Oximeter] Pulse Rate [Pulse Oximeter] Respiratory Rate Blood Pressure 162/79 H Blood Pressure [Ri ght Arm] Blood Pressure [Ri ght Upper Arm] Pulse Oximetry 97 98 97 Oxygen Delivery [place] [facility] 06/02/22 22:17 06/03/22 00:05 Temperature 97.7 F Pulse Rate 61 Pulse Rate [Left P ulse Oximeter] 69 Pulse Rate [Pulse Oximeter] Respiratory Rate 16 Blood Pressure 204/97 H Blood Pressure [Ri ght Arm] 173/91 H Blood Pressure [Ri ght Upper Arm] Pulse Oximetry 99 99 Oxygen Delivery Me od Room Air Labs Labs: Short CBC 06/02/22 Range/Units 19:41 WBC 6.49 (4.50-11.00) K/uL Hgb 15.8 (13.5-17.5) gm/dL Hct 47.6 (37.0-53.0) % Plt Count 251 (140-440) K/uL BMP 06/02/22 19:41 Sodium 139 Potassium 4.3 Chloride 108 Carbon Dioxide 25 BUN 14 Creatinine 0.8 Glucose 114 Calcium 9.0 Liver Function 06/02/22 Range/Units 19:41 Total Bilirubin 0.5 (0.1-1.5) mg/dL AST 25 (12-35) U/L ALT 25 (4-50) U/L Alkaline Phosphatase 90 (40-150) U/L Albumin 4.4 (3.3-5.0) g/dL Urine 06/02/22 Range/Units 23:00 Urine Color Yellow (Yellow) Urine Appearance Clear (Clear) Urine pH 5.5 (5.0-8.5) Ur Specific [place] 1.015 (1.000-1.030) Urine Protein Negative (Negative) Urine Glucose (UA) Negative (Negative) Assessment and Plan Assessment and plan (1) Memory change: Status: Acute (2) Transient global amnesia: Status: Acute (3) Hearing loss: Status: Acute (4) Fall: Status: Acute Plan #Acute encephalopathy now improving close to baseline #Left-sided facial droop # dyslipidemia, #hypothyroidism #central sleep apnea - CT head on admission showed no acute intracranial abnormality, mild age-related brain atrophy and white matter hypodensity consistent with chronic small vessel ischemic changes. - - CTA obtained with results still pending - - We will admit with trending troponin, on telemetry for close monitoring, - - We will give thiamine for possible Wernicke encephalopathy - - He drinks only 1 drink a day without any withdrawal symptoms will start on ciwa protocol - - check MRI, echo, CPK, TSH, b12, trop, UDS, UA - - start on asa and lipitor - - ALlow for permissive hypertension PT/OT - - Code status Full - Dvt ppx with heparin sq
[2022-06-03 02:19] VITALS: BP 156/86; PULSE 68; RESP 16; TEMP 36.5; O2SAT 99
[2022-06-03 03:00] VITALS: BP 156/86; PULSE 68; RESP 16; TEMP 36.5; O2SAT 99
--- NOTE | 2022-06-03 05:31 | PC.NURSE ---
Shift note: Pt arrived at the unit walking with the accompanied ED staff. Conscious, alert and oriented on arrival. Except Bp which was high at 173/91, other v/s were stable at admission. Pt is hard of hearing, uses hearing aid. On assessment, lungs sound clear, bowel sound active, and denied any pain, dizziness and headache. Dr. Patsy Pearce assessed pt through [employer] system. Pt put on telemetry observation and reading was NSR. Education on admission protocol and orientation to room done.
[2022-06-03 07:00] VITALS: BP 165/92; PULSE 61; PULSE 68; PULSE 69; RESP 16; RESP 18; TEMP 36.6; TEMP 36.7; O2SAT 99
[2022-06-03 07:22] LABS: Troponin I* 0.02 ng/mL (0.01-0.04)
--- NOTE | 2022-06-03 09:07 | CRLHL7_ITS ---
For Patients: As a result of the Cures Act, medical imaging exams and procedure reports are released immediately into your electronic medical record. You may view this report before your referring provider. If you have questions, please contact your health care provider. INDICATION: Ataxia. TECHNIQUE: Brain MRI without contrast. The following sequences were obtained: Sagittal T1 weighted sequence. DWI and ADC mapping sequences. Axial FLAIR and DELMA T2 weighted sequences. Susceptibility or GRE sequence. COMPARISON: Head CT from 06/02/2022. FINDINGS: No evidence of acute ischemia. No evidence of acute or chronic intracranial blood products. Patchy FLAIR hyperintensities within the supratentorial white matter and brainstem, typical for chronic microvascular ischemic change. No mass effect or herniation. No hydrocephalus or extra-axial collections. The pituitary gland, parasellar structures and optic chiasm are normal. Posterior fossa is normal. All the major intracranial vascular structures demonstrate normal flow-related signal. The orbital contents are normal. No calvarial or skull base marrow replacing process. Moderate ethmoid and maxillary sinus mucosal thickening. No extracranial soft tissue findings. IMPRESSION: 1. No acute infarction or other acute intracranial pathology. 2. Mild chronic microvascular ischemic changes within the supratentorial white matter and brainstem. 3. No localized pathology involving posterior fossa structures. Dictated by Christos White MD @ 06/03/2022 12:36:05 PM (Electronically Signed)
[2022-06-03 11:00] VITALS: BP 158/90; PULSE 65; RESP 18; TEMP 36.6; O2SAT 97
--- NOTE | 2022-06-03 15:30 | PC.NURSE ---
Patient VSS. All concerns addressed. PIV removed. Patient d/c'd to home with .
--- NOTE | 2022-06-04 15:38 | P.DS_ITS ---
DS: Providers Provider Time Seen by Provider: 13:00 Date Seen: 06/04/22 Date of admission: 06/02/22 23:44 Primary care physician: Rafa Ventura MD Admitting Clinician: Carlos Macario MD Consults: 06/03/22 01:07 Consult to Occupational Therapy [CONS] Routine Comment: Reason(s) for OT Consult:: ADLs Prior to Discharge Any Restrictions?:: No Restrictions Consult to Physical Therapy [CONS] Routine Comment: Reason(s) for PT Consult:: Balance Assessment Any Restrictions?:: No Restrictions Attending Physician on discharge: Carson Mcleod MD Date of Discharge: 06/04/22 DS: Diagnosis Discharge Diagnosis (1) Transient amnesia: Status: Acute Problem details: Etiology not determined: no obvious acute stroke. Consider post-ictal amnesia versus transient global amnesia. Doubt migraine equivalent. (2) Cerebral microvascular disease: Status: Acute Problem details: MRI of brain, 06/03/2022: involving supratentorium and brainstem (3) Elevated blood pressure reading without diagnosis of hypertension: Status: Acute (4) Transient global amnesia: Status: Acute Problem details: History of transient global amnesia 2018 (5) Hypothyroidism: Status: Acute DS: Summary Hospital Course Hospital Course: 77-year-old man presented with acute amnesia. History of transient global amnesia in 2018 is noted. Recent fall also noted or he struck his head. No other focal motor neurologic deficits. In the short period of time that he was in our hospital emergency department and our hospital inpatient setting his condition totally normalized. CT scan of head demonstrated no acute pathology. CT angiogram of head and neck also demonstrated no acute pathology. Eventually MR scan of the brain was obtained demonstrating microvascular ischemic changes only with no obvious lacunar strokes or other major strokes. It is postulated patient may have had a 2nd episode of transient global amnesia verses he may have had a seizure with postictal amnesia. We recommended he have follow up with his primary care physician and to consideration be given to the possibility of seeing neurologist in consultation in the near future. Status at Discharge Functional status at discharge: independent ambulation Overall status at discharge: patient is back to baseline Time Spent with Patient Time attestation: Total time spent providing and/or coordinating discharge services: Time spent: Greater than 30 minutes Exam Narrative: Exam Narrative: Alert, oriented to self, place, time, situation. Friendly, cooperative, articulate. Has amnesia of events around the episode of his confusion otherwise has good recall of historic events and is able to engage appropriately in current discussions. No focal motor neurologic deficits. Telemetry has been benign throughout his hospital stay. Normal electrocardiograms. Echocardiogram obtained of the course hospitalization demonstrated borderline left ventricular hypertrophy with ejection fraction of 60%. Echo otherwise negative. Const: Documenting provider has reviewed patient's vital signs: yes DS: Data Imaging CT scan - head: Attestation: I have reviewed the pertinent imaging results. Radiologist's impression: 1. No acute intracranial abnormality identified. 2. Mild age-related brain atrophy and white matter hypodensity consistent with chronic small vessel ischemic change.? CT angiogram head and neck: Attestation: I have reviewed the pertinent imaging results. Radiologist's impression: FINDINGS: There is carotid atherosclerosis. There is no significant carotid or vertebral artery stenosis or dissection. The soft tissues of the neck are within normal limits. The cervical spine is in normal alignment. IMPRESSION: No significant carotid or vertebral artery stenosis or dissection. MRI - head: Attestation: I have reviewed the pertinent imaging results. Radiologist's impression: 1. No acute infarction or other acute intracranial pathology. 2. Mild chronic microvascular ischemic changes within the supratentorial white matter and brainstem. 3. No localized pathology involving posterior fossa structures. Discharge Plan Discharge Disposition: Home, Self-Care Date of Admission: 06/02/22 23:44 Attending Provider on Discharge: Carson Mcleod Primary Care Provider: Rafa Ventura Condition: Improved Anticipated Discharge Date/Time: 06/03/22 15:30 Discharge Medications: Continued aspirin [Adult Aspirin Regimen] 81 mg tablet,delayed release (DR/EC) 81 mg PO DAILY levothyroxine [Synthroid] 125 mcg tablet 125 mcg PO DAILY Discharge Orders: Discharge Order (Routine); Ordered 06/03/22 Ordered By: Carson Mcleod Patient Education: Epilepsy (GEN), Hypertension (GEN), Amnesia (GEN), Seizures After Traumatic Brain Injury (GEN) Additional Instructions: 1. Follow-up with your physician - discuss possible future neurology consultation; 2. Avoid things that might lower our seizure threshold, or increase your risk for seizure, such as alcohol consumption. Consider learning new ways to addressing stress so as to lower your anxiety. Activity Level: No Restrictions and Activity as Tolerated Discharge Diet: 2 gm Sodium Follow Up Appointments: Rafa Ventura MD [Primary Care Provider] - 06/10/22 10:00 am (Return to hospital or clinic sooner if needed. ) Forms: [employer] Info Instructions
== END 2022-06-03 16:40 | disposition home or self-care (01) ==
LOC: ED 22:24 → MEDSURG 23:45
PROVIDERS: Hospitalist; Admitting Provider Hospitalist; Emergency Provider Family Medicine; PCP Family Medicine; Visit Provider Hospitalist
DX: G45.4 Transient global amnesia (principal); I67.9 Cerebrovascular disease, unspecified; R03.0 Elevated blood-pressure reading, without diagnosis of hypertension; E87.1 Hypo-osmolality and hyponatremia; G93.40 Encephalopathy, unspecified; R26.89 Other abnormalities of gait and mobility; R29.810 Facial weakness; R53.1 Weakness; G47.31 Primary central sleep apnea; R04.0 Epistaxis; E78.5 Hyperlipidemia, unspecified; E03.9 Hypothyroidism, unspecified; N52.9 Male erectile dysfunction, unspecified; W19.XXXA Unspecified fall, initial encounter; Z79.82 Long term (current) use of aspirin; H91.90 Unspecified hearing loss, unspecified ear; Z87.898 Personal history of other specified conditions; Z98.890 Other specified postprocedural states; I10 Essential (primary) hypertension; R29.6 Repeated falls; Z20.822 Contact with and (suspected) exposure to COVID-19; J01.80 Other acute sinusitis
CPT/HCPCS: 36415; 70450; 70496; 70498; 70551; 80053; 80306; 81001; 82077; 82550; 82570; 82607; 82962; 83036; 83605; 83930; 83935; 84145; 84300; 84439; 84443; 84484; 85025; 85651; 86140; 87086; 87631; 87635; 93005; 93306; 94761; 97116; 97162; 97165; 99284; 99285; 99291; G0378; Q9967

== ENCOUNTER 2022-08-12 09:00 | Outpatient (RCR) | payer MEDICARE, SELFPAY ==
--- NOTE | 2022-07-17 15:56 | PT.OPEX ---
PT [place] Outpatient Eval PT [facility] Outpatient Eval Start: 07/14/22 17:30 Freq: Status: Active Protocol: Document 07/14/22 17:30 NIKKIE (Rec: 07/14/22 17:57 NIKKIE Desktop) E-signed By Aliyah Ndiaye PT Physical Therapy Outpatient Evaluation Insurance Information Insurance Name Medicare B Insurance Information/Comments [employer] Medical Diagnosis CONCUSSION W/LOC S06.OXAA NECK PAIN M54.2 Treating Diagnosis DIZZINESS CERVICAL STRAIN CERVICAL TIGHTNESS CERVICAL FACET HYPOMOBILITY DISCORDINATION Subjective Subjective PATIENT REPORTS,I JUST FEEL A LITTLE DRUNK IN THE HEAD BUT IT USED TO BE WORSE. SHE DESCRIBES SLIPPING AND FALLING ON ICE LANDING ON HIS LEFT SHOULDER AND EXPERIENCING ISSUES WITH HIS MEMORY, HEADACHE, AND FATIGUE. 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 Precautions Treatment Precautions/Contraindications AVOID OVEREXERTION Therapy Limitations/Systems Review Hearing Objective Other/Pertinent Objective CERVICAL ROM:WFL SHOULDER AROM Flexion: R/L WNL Abduction: R/L WNL Internal Rotation: R/L WNL External Rotation: R/L WNL NECK/SHOULDER MMT: Deep neck flexor endurance test: 22SEC Shoulder shrug: R/L 5/5 Shoulder flexion: R/L 5/5 Shoulder External Rotation: R/ L 5/5 Shoulder Internal Rotation: R/ L 5/5 Elbow flexion: R/L 5/5 Elbow extension R/L 5/5 HIP FLEX R/L 5/5 HIP EXT 5/5 HIP ABD/ADD 5/5 KNEE EXT 5/5 KNEE FLEX 5/5 SPECIAL TEST Spurlings Test: (-) Cervical distraction test: (-) Bakody Sign(C4-C6 Radiculopathy): (-) Cervical rotation/Lateral flexion Test: (-) Vignesh Test: (-) Shoulder impingement:(-) HawkinsKennedy Test: (-) Neer Test: (-) Horizontal Adduction Test: (-) Painful arc 60-120 scaption: ( -) JOINT MOBILITY/PALPATION:C3-5 LEFT>RIGHT HYPOMOBILITY, FWD HEAD POSTURING TX: CHIN TUCK SCAPULAR RETRACTION SEATED SHOULDER CIRCLES BKWD CERVICAL ROTATION R/L LEVATOR SCAPULAE STRETCH Assessment Assessment/Impression PATIENT IS A [address] CUMMINS REFERRED TO PHYSICAL THERAPY D/T POST CONCUSSION W/LOC AND NECK PAIN . PMHX INCLUDES BUT NOT LIMITED TO HTN, HLD, NULATO WITH BILATERAL HEARING AID, HYPOTHYROIDISM, H/O COVID (2021), H/O TRANSIENT GLOBAL AMNESIA (03/2015), H/O FALL WITH RIB FRACTURE (04/2021), AND LEFT SHOULDER INJURY. PATIENT LIVES WITH HIS IN A 1SH AND 4SE W/RAILING. 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 HE REPORTS A FALL 04/2021 WHERE HE SLIPPED ON ICE WHILE WALKING HIS DTR'S DOG AND GETTING CAUGHT UP IN THE LEASH . HE DID NOT HAVE LOC AT THAT TIME. ADDITIONALLY, HE DESCRIBES AN IDIOPATHIC GLOBAL AMNESIA ~7YRS AGO WITH A WORK UP THAT DID NOT REVEAL A CAUSE. HE DESCRIBES NOT INITIALLY GETTING CHECKED OUT AT THE ER THIS LAST INCIDENT BUT FOLLOWING WORKING IN HIS SHOP WITH ETHER AND EXPERIENCING MEMORY LOSS, HIS TOOK HIM. DIAGNOSTIC WERE UNREMARKABLE FOR BRAIN BLEED INDICATING MINOR AGE RELATED ATROPHY AND MICRO CHANGES. HE IS HERE TODAY FOR ASSISTANCE WITH RESIDUAL HEADACHES, NECK PAIN, DIZZINESS, AND BRAIN FOG . HE HAS A CRUISE SCHEDULED FOR MID AUGUST AND WANTS TO MAKE SURE HE HAS RECOVERED. THROUGH A THOROUGH ASSESSMENT USING BOTH A UPPER QUARTER AND LOWER QUARTER SCREEN ALONG WITH A COMPREHENSIVE CERVICAL EVALUATION, NOTABLE RIGHT SCALENE AND LEFT UPPER TRAP INCREASED TONE/TIGHTNESS WITH POINT TENDERNESS IS NOTED ALONG WITH CERVICAL LEFT FACET 3-5 HYPOMOBILITY. HE HAS NORMAL ROM, STRENGTH, AND FLEXIBILITY ABOUT THIS UPPER AND LOWER QUADRANT WITH EXCEPTION CERVICAL PARASPINAL THAT ARE WITHIN FUNCTIONAL LIMITS. WE BEGAN WITH DISCUSSING GOOD SLEEP HYGIENE BY AVOIDING TV, TABLET, PHONE TIME WITHIN 60-90MIN OF GOING TO BED WELL AVOIDING NAPPING DURING THE DAY AND SLEEPING IN ON WEEKENDS TO RETURN A NORMAL SLEEPING PATTERN. ADDITIONALLY, WE DISCUSSED AVOIDING PROLONGED TIME IN FRONT OF A SCREEN WITH ADAPTATION TO TV TO THE NIGHT MODE IF WATCHING TV AFTER SUN DOWN. PATIENT PROVIDED EDUCATION ON PERCEIVED EXERTION AND SYMPTOM MGMT WITH A 2 POINT RULE PARAMETER OF NO GREATER OF AN INCREASE THAN 2 WHEN PERFORMING ANY ACTIVITY. HE HAS BEEN TRYING TO RETURN TO [employer] CLASS AND WAS UNABLE TO PARTICIPATE 2 WEEKS AGO WHEN HE ATTEMPTED. WE DISCUSSED WAYS TO SCALE BACK ACTIVITIES AND ENCOURAGED HIM TO RETURN AND ATTEMPT TO MODIFY KEEPING THE 2 POINT RULE IN MIND. LASTLY, WE DISCUSSED WALKING FOR 5-10 MIN 2-3 TIMES A DAY TO BEGIN BUILDING HIS ENDURANCE. HE IS AN ACTIVE MAN AND WOULD LIKE TO RETURN TO A WALK /JOG PROGRAM WELL HIS WEIGHT LIFTING ROUTINE HE IS ABLE. PATIENT PROVIDED AN HEP TO ADDRESS IS CERVICAL PARASPINAL MUSCULATURE AND UPPER TRUNK STRENGTHENING WITH PLANS TO ADD THE RECUMBENT BIKE NEXT VISIT. PATIENT VERBALIZED UNDERSTANDING TO ALL SKILLED INSTRUCTION AND AGREEABLE TO POC AND FREQ. Primary Functional Limitations AMB >10MIN NECK FLEXIBILITY BALANCE Plan of Care Rehabilitation Potential Excellent Physical Therapy Goals 1. PATIENT WILL TOLERATE 15 MIN OF RECREATIONAL WALKING IN 4-6 WEEKS. 2. PATIENT WILL VERBALIZE SYMPTOMS <2/10 WITH 24 HOURS OR GREATER IN 4-6 WEEKS 3. PATIENT WILL DEMONSTRATE INDEPENDENCE WITH HIS HEP AND THE ABILITY TO PROGRESS IN 4-6 WEEKS. 4. PATIENT WILL REPORT <2/10 NECK PAIN IN 4-6 WEEKS. Coordination/Communication With Referral Source Frequency/Duration 1W6 Patient Will Be Discharged From Therapy Completion of LTG(s), Independently Progressing Discharge Plan Comments DC TO SELF WHEN GOALS MET. Evaluation Billing Untimed Code Treatment Minutes 30 PT Eval No Charge No Complexity High Certification Information Initial Certification Date 07/14/22 Ending Certification Date 10/06/22 Provider Signature Shows Agreement With POC & Medical Necessity Physician Signature & Date Requested Please Sign/Date Here Physician Comment/Change : Physician NPI Number #
== END 2022-10-20 14:10 | disposition home or self-care (01) ==
PROVIDERS: PCP Family Medicine; Visit Provider Family Medicine
DX: S06.0XAA Concussion with loss of consciousness status unknown, initial encounter (principal); M54.2 Cervicalgia; Z51.89 Encounter for other specified aftercare
CPT/HCPCS: 97110; 97112; 97140; 97163

== ENCOUNTER 2023-03-06 09:04 | Outpatient (CLI) | payer MEDICARE, SELFPAY | END 2023-03-06 09:05 | disposition home or self-care (01) | LOC: NFLDREF 09:05 | PROVIDERS: PCP Family Medicine; Visit Provider Family Medicine | DX: E78.5 Hyperlipidemia, unspecified (principal); I10 Essential (primary) hypertension; Z12.5 Encounter for screening for malignant neoplasm of prostate; R03.0 Elevated blood-pressure reading, without diagnosis of hypertension; E03.9 Hypothyroidism, unspecified | CPT/HCPCS: 80053; 80061; 84153; 84443 ==

== ENCOUNTER 2023-10-04 13:00 | Observation (INO) | payer MEDICARE, SELFPAY ==
[2023-10-04] VITALS (18 sets, daily range): BP systolic 151–192; BP diastolic 84–101; PULSE 56–85; RESP 16–18; TEMP 36.3–36.9; O2SAT 94–100; BMI 23.7
--- NOTE | 2023-10-04 13:46 | CRLHL7_ITS ---
For Patients: As a result of the Century Cures Act, medical imaging exams and procedure reports are released immediately into your electronic medical record. You may view this report before your referring provider. If you have questions, please contact your health care provider. CLINICAL HISTORY: Confusion. TECHNIQUE: Standard helical CT image acquisition through the head and neck following the administration of intravenous contrast was performed. 3D and MIP reconstructions were performed at a separate workstation and permanently archived. COMPARISON: None available. FINDINGS: The origins of the great vessels from the aortic arch are patent. The common carotid arteries are patent. Moderate (approximately 50%) atherosclerotic stenoses at the bilateral proximal ICAs by NASCET criteria. The more distal cervical segments of the internal carotid arteries are patent. The origins and cervical segments of the vertebral arteries are patent. Intracranial atherosclerotic disease with moderate stenosis of the mid intracranial segment of the right vertebral artery and short-segment severe stenosis of the supraclinoid left ICA. No evidence of cerebral aneurysm or findings to suggest an arteriovenous shunting lesion. IMPRESSION: 1. Short segment severe stenosis of the supraclinoid left ICA. 2. Moderate (approximately 50%) atherosclerotic stenoses at the bilateral proximal ICAs by NASCET criteria. Please note that all CT scans at this facility use dose modulation, iterative reconstruction, and/or weight-based dosing when appropriate to reduce radiation dose to as low as reasonably achievable. Dictated by Maurice Walter MD @ 10/05/2023 11:06:58 AM (Electronically Signed)
--- NOTE | 2023-10-04 13:46 | CRLHL7_ITS ---
For Patients: As a result of the Century Cures Act, medical imaging exams and procedure reports are released immediately into your electronic medical record. You may view this report before your referring provider. If you have questions, please contact your health care provider. CLINICAL HISTORY: Confusion. TECHNIQUE: Standard helical CT image acquisition through the head and neck was performed after intravenous contrast bolus enhancement. 3D and MIP reconstructions were performed at an independent workstation and permanently archived. COMPARISON: None available. FINDINGS: The origins of the great vessels from the aortic arch are patent. The common carotid arteries are patent. Moderate (approximately 50%) atherosclerotic stenoses at the bilateral proximal ICAs by NASCET criteria. The more distal cervical segments of the internal carotid arteries are patent. The origins and cervical segments of the vertebral arteries are patent. Intracranial atherosclerotic disease with moderate stenosis of the mid intracranial segment of the right vertebral artery and short-segment severe stenosis of the supraclinoid left ICA. No evidence of cerebral aneurysm or findings to suggest an arteriovenous shunting lesion. IMPRESSION: 1. Short segment severe stenosis of the supraclinoid left ICA. 2. Moderate (approximately 50%) atherosclerotic stenoses at the bilateral proximal ICAs by NASCET criteria. Please note that all CT scans at this facility use dose modulation, iterative reconstruction, and/or weight-based dosing when appropriate to reduce radiation dose to as low as reasonably achievable. Dictated by Maurice Walter MD @ 10/05/2023 10:41:24 AM (Electronically Signed)
--- NOTE | 2023-10-04 13:47 | CRLHL7_ITS ---
For Patients: As a result of the Century Cures Act, medical imaging exams and procedure reports are released immediately into your electronic medical record. You may view this report before your referring provider. If you have questions, please contact your health care provider. CLINICAL HISTORY: Confusion. TECHNIQUE: Standard helical CT image acquisition through the head was performed. COMPARISON: None available. FINDINGS: There is no acute intracranial hemorrhage, extra-axial collection, mass effect or midline shift. Wells-white matter differentiation is preserved. Age-appropriate mild generalized parenchymal volume loss with resulting prominence of cerebral sulci and the ventricular system. Patchy hypoattenuation in the white matter of both hemispheres likely reflects sequela of chronic small vessel ischemia. The calvarium is unremarkable. Thinning of the ocular lenses. Minimal mucosal thickening of the maxillary sinuses and ethmoid air cells. The mastoid air cells are well aerated. IMPRESSION: 1. No CT evidence of acute intracranial abnormality. 2. Senescent changes including generalized parenchymal volume loss and findings likely reflecting sequela of chronic small vessel ischemia. Please note that all CT scans at this facility use dose modulation, iterative reconstruction, and/or weight-based dosing when appropriate to reduce radiation dose to as low as reasonably achievable. Dictated by Maurice Walter MD @ 10/04/2023 2:28:50 PM (Electronically Signed)
--- NOTE | 2023-10-04 13:49 | ED_ITS ---
HPI - General Adult General Chief complaint: Altered Mental Status Stated complaint: confusion, memory issues Time Seen by Provider: 10/04/23 13:02 History of Present Illness HPI narrative: Patient is a pleasant 78 year white male lives in [facility], visits here causes grand children are here and he is here with his and daughter. He reports that he woke up this morning a little dizzy and was unable to really remember where he was or what was going on. Denies head injury or trauma. He has had TIAs in the past. He has had transient global amnesia in the past as well. This seemed to get better. Currently he is on baby aspirin occasionally, nose takes Synthroid. The patient denies chest pain, denies breathing problem, denies focal neurologic deficits. Denies headache or visual problem. He has had no facial asymmetry. He is able to remember people but not place or date. He does know he is in [place] but does not know his address, or the year. Patient denies any recent fever, chills, other illness. Related Data Home Medications ?Medication ?Instructions ?Recorded ?Confirmed aspirin 81 mg tablet,delayed 81 mg PO DAILY 01/06/22 10/04/23 release (Adult Aspirin Regimen) Previous Rx's ?Medication ?Instructions ?Recorded Synthroid 125 mcg tablet 125 mcg PO DAILY #90 tabs 03/11/23 (levothyroxine) Allergies Allergy/AdvReac Type Severity Reaction Status Date / Time Sulfa (Sulfonamide Allergy Mild Hives Verified 03/11/23 09:49 Antibiotics) Review of Systems Status of ROS: Reports: 10 or more systems reviewed and unremarkable except as noted in History and below [facility] Medical History (Updated 10/04/23 @ 17:17 by Carson Mcleod MD) Hypothyroidism ?E03.9 - Hypothyroidism, unspecified (ICD-10) Carotid atherosclerosis ?I65.29 - Occlusion and stenosis of unspecified carotid artery (ICD-10) Central sleep apnea due to Jack-Hirsch respiration ?R06.3 - Periodic breathing (ICD-10) Closed head injury ?S09.90XA - Unspecified injury of head, initial encounter (ICD-10) Complex sleep apnea syndrome ?G47.31 - Primary central sleep apnea (ICD-10) Concussion ?S06.0XAA - Concussion with loss of consciousness status unknown, initial encounter (ICD-10) Dyslipidemia ?E78.5 - Hyperlipidemia, unspecified (ICD-10) Fracture of multiple ribs ?S22.49XA - Multiple fractures of ribs, unspecified side, initial encounter for closed fracture (ICD-10) Ganglion cyst of right foot ?M67.471 - Ganglion, right ankle and foot (ICD-10) Peyronie's disease ?N48.6 - Induration penis plastica (ICD-10) 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 - Retinal micro-aneurysms, unspecified, right eye (ICD-10) Transient global amnesia ?G45.4 - Transient global amnesia (ICD-10) Cerebral microvascular disease ?I67.89 - Other cerebrovascular disease (ICD-10) Transient amnesia ?R41.3 - Other amnesia (ICD-10) Memory change ?R41.3 - Other amnesia (ICD-10) Epistaxis, recurrent ?R04.0 - Epistaxis (ICD-10) Erectile dysfunction ?N52.9 - Male erectile dysfunction, unspecified (ICD-10) History of electroencephalography ?Z92.89 - Personal history of other medical treatment (ICD-10) Hearing loss ?H91.90 - Unspecified hearing loss, unspecified ear (ICD-10) Fall ?W19.XXXA - Unspecified fall, initial encounter (ICD-10) Surgical History Status post hernia repair ?Z98.890 - Other specified postprocedural states (ICD-10) ?Z87.19 - Personal history of other diseases of the digestive system (ICD-10) History of colonoscopy ?Z98.890 - Other specified postprocedural states (ICD-10) Family History Mother Heart disease Father Stroke Family/Other Diabetes Social History Narrative: Medical Problems: Ganglion cyst of right foot 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 Hebert 08/12/17 note. Transient global amnesia See scanned 04/10/15 [facility] note. Carotid atherosclerosis Rodrigo bifurcations, mild. See scanned [facility] note 04/10/15. Hypothyroidism Abstracted [facility] record. Dyslipidemia Abstracted [facility] record. Hearing loss Abstracted [facility] record. Peyronie's disease Abstracted [facility] record. Retinal microaneurysm, right eye Abstracted [facility] record. History of electroencephalogram 04/11/15, essentially normal. See scanned report. Surgical Problems: S/P hernia repair History of colonoscopy 11/20/10. Rcmnd 10Y repeat. No report, per [facility] record. What is your current living situation?: I presently have a place to live Problems where you live: no known problems Problems where you live details: none In the past 12 months, utilities in danger of being shut off: no In past 12 months, lack of transportation kept you from medical appts, meetings, work, or getting things needed for daily living: no In the past 12 mos, have been you worried that your food would run out before you had money to buy more?: never true In the past 12 mos, the food you bought just didn't last and you didn't have money to buy more?: never true Highest level of school completed/degree received: Master's degree Smoking Status: Never smoker Do you use any of these nicotine containing products: None Second hand tobacco smoke exposure: No How often do you have a drink containing alcohol: never AUDIT-C Alcohol total score: 0 Non-prescribed substance use: denies use Caffeine: No How often does anyone, including family, friends and others, physically hurt you : never How often does anyone, including family, friends and others, insult or talk down to you: never How often does anyone, including family, friends and others, threaten you with harm: never How often does anyone, including family, friends and others, scream or curse at you: never Little interest or pleasure in doing things: not at all Feeling down, depressed, or hopeless: not at all service: Yes Exam Narrative: Exam Narrative: Objective: Patient's vital signs are within normal limits except the slightly hypertensive, he is afebrile He is alert oriented to person, not to place or time. He is talking normally normal sentences. He has no facial asymmetry extraocular moves intact no pronator drift of his arms or legs he is able to hold him up in the air, normal peripheral per sensation Pulses regular Heart rhythm regular heart murmur Chest clear Abdomen benign soft Mental status is appropriate. Const: Vital Signs, click to edit/add: Vital Signs - 24 hr 10/04/23 13:02 10/04/23 13:09 10/04/23 13:44 Temperature 97.3 F L Pulse Rate 71 Pulse Rate [Pulse Oximeter] 71 Respiratory Rate 16 Blood Pressure Blood Pressure [Ri ght Upper Arm] 191/93 H Pulse Oximetry 97 95 97 Oxygen Delivery Me thod Room Air 10/04/23 14:02 10/04/23 14:18 10/04/23 14:30 Temperature Pulse Rate 70 66 Pulse Rate [Pulse Oximeter] Respiratory Rate Blood Pressure 175/97 H Blood Pressure [Ri ght Upper Arm] Pulse Oximetry 99 97 Oxygen Delivery Me thod 10/04/23 14:31 10/04/23 14:32 10/04/23 15:00 Temperature Pulse Rate 64 62 67 Pulse Rate [Pulse Oximeter] Respiratory Rate Blood Pressure 183/97 H Blood Pressure [Ri ght Upper Arm] Pulse Oximetry 97 97 97 Oxygen Delivery Me thod 10/04/23 15:02 10/04/23 15:30 10/04/23 15:31 Temperature Pulse Rate 70 58 L 66 Pulse Rate [Pulse Oximeter] Respiratory Rate Blood Pressure 160/94 H 171/101 H Blood Pressure [Ri ght Upper Arm] Pulse Oximetry 99 98 98 Oxygen Delivery Me thod Course Vital Signs Vital signs: Initial Vital Signs Temperature 97.3 F L 10/04/23 13:02 Temperature Source Temporal Artery Scan 10/04/23 13:02 Pulse Rate 71 10/04/23 13:02 Respiratory Rate 16 10/04/23 13:02 Blood Pressure 191/93 H 10/04/23 13:02 Blood Pressure Mean 125 H 10/04/23 13:02 Blood Pressure Position Sitting 10/04/23 13:02 Pulse Oximetry 97 10/04/23 13:02 Oxygen Delivery Method Room Air 10/04/23 13:02 Vital Signs Temperature 97.3 F L 10/04/23 13:02 Pulse Rate 71 10/04/23 13:02 Respiratory Rate 16 10/04/23 13:02 Blood Pressure 191/93 H 10/04/23 13:02 Pulse Oximetry 97 10/04/23 13:02 Oxygen Delivery Method Room Air 10/04/23 13:02 Temperature 98.0 F 10/05/23 03:47 Pulse Rate 77 10/05/23 03:55 Respiratory Rate 18 10/05/23 03:47 Blood Pressure 179/89 H 10/05/23 03:47 Pulse Oximetry 98 10/05/23 03:47 Oxygen Delivery Method Room Air 10/05/23 03:47 Medications Administered Medications: Generic Name Dose Route Start Last Admin Trade Name Freq PRN Reason Stop Dose Admin Levothyroxine Sodium 125 mcg 10/05/23 06:30 10/05/23 06:50 Levothyroxine 125 Mcg Tablet PO 125 mcg DAILY@0630 SHO Administration Sodium Chloride 5 ml 10/04/23 21:00 10/05/23 06:42 Sodium Chloride 0.9 % (Flush) 10 Ml Syringe IVF Not Given BID SHO Discontinued Medications Generic Name Dose Route Start Last Admin Trade Name Freq PRN Reason Stop Dose Admin Acetaminophen 1,000 mg 10/04/23 15:03 10/04/23 15:48 Acetaminophen 500 Mg Tablet PO 10/04/23 15:04 Not Given ONCE ONE Aspirin 81 mg 10/04/23 15:30 10/04/23 15:18 Aspirin 81 Mg Tab.Chew PO 10/04/23 15:31 81 mg ONCE ONE Administration Sodium Chloride 500 mls @ 500 mls/hr 10/04/23 13:47 10/04/23 15:48 0.9 % Sodium Chloride 500 Ml IV 10/04/23 14:46 Infused .Q1H ONE Infusion Medical Decision Making MDM Narrative Medical decision making narrative: 78-year-old white male with history of transient global amnesia and TIA, presents with confusional state today, although he has verbally normal and speaking normally, he has no focal neurologic deficit other than his inability to remember time and date. I think at this point will do a CT CTA, labs, EKG, cardiac and oximetry monitoring. Will consult Stroke Neurology will get these labs back. Addendum 3:02 p.m. patient's EKG shows normal sinus rhythm normal EKG by my read, his head CT is read as Radiology as negative, his CT CTA of head and neck are pending. Discussed with Dr. Gonzales Stroke Neurology and she recommended MRI with and without contrast. If this is normal recommends aspirin daily and close neurologic follow-up. We are unable to get an MRI of the brain with and without contrast today, would admit the patient put him on aspirin, cardiac monitoring, PT assessment, and then Stroke Neurology offered to consult with the patient tomorrow with results of the MRI with and without contrast is noted. Discussed with Dr. Sweeney who kindly will follow up patient hospital thanks Lab Data Labs: Lab Results 10/04/23 10/04/23 Range/Units 13:21 13:48 WBC 7.25 (4.50-11.00) K/uL RBC 5.60 (4.30-5.90) m/uL Hgb 16.7 (13.5-17.5) gm/dL Hct 51.5 (37.0-53.0) % MCV 92 (80-100) fL MCH 30 (26-34) pg MCHC 32 (32-36) gm/dL RDW Coeff of Sky 13.0 (11.5-15.5) % Plt Count 279 (140-440) K/uL Neut % (Auto) 51.5 (42.0-72.0) % Lymph % (Auto) 30.3 (20-44) % [place] % (Auto) 10.9 (0.0-11.0) % Eos % (Auto) 6.5 (0.0-7.0) % Baso % (Auto) 0.4 (0.0-3.0) % Neut # (Auto) 3.73 (1.7-7.0) K/uL Lymph # (Auto) 2.20 (0.90-2.90) K/uL [place] # (Auto) 0.80 (0.00-0.90) K/UL Eos # (Auto) 0.47 (0.00-0.50) K/uL Baso # (Auto) 0.03 (0.00-0.30) K/uL Abs Immat Gran (auto) 0.03 (0.00-0.30) K/uL Imm/Tot Granulo (auto) 0.4 % Sodium 139 (135-149) mmol/L Potassium 4.2 (3.6-5.1) mmol/L Chloride 107 (96-114) mmol/L Carbon Dioxide 26 (20-32) mmol/L Anion Gap 6 L (7-15) mEq/L BUN 18 (7-30) mg/dL Creatinine 0.8 (0.5-1.5) mg/dL Estimated Creat Clear 64.67 Estimated GFR 89 ml/min Glucose 93 (60-115) mg/dL Calcium 9.2 (8.4-10.6) mg/dL Total Bilirubin 0.5 (0.1-1.5) mg/dL Direct Bilirubin 0.3 (0.0-0.5) mg/dL AST 23 (12-35) U/L ALT 23 (4-50) U/L Alkaline Phosphatase 99 (40-150) U/L C-Reactive Protein < 0.5 L (0.5-1.0) mg/dL Total Protein 8.1 (6.0-8.3) g/dL Albumin 4.6 (3.3-5.0) g/dL POC Troponin I 0.00 L (0.01-0.04) ng/ml Discharge Plan Discharge Clinical Impression: Transient amnesia Patient Disposition: Home w/ Parent or Adult Condition: Stable Activity Level: Light activity Discharge Diet: Low Fat/Low Cholesterol
[2023-10-04 14:01] LABS: Basophils Absolute Auto 0.03 K/uL (0.00-0.30); Basophils Percent Auto 0.4 % (0.0-3.0); Eosinophils Absolute Auto 0.47 K/uL (0.00-0.50); Eosinophils Percent Auto 6.5 % (0.0-7.0); Hematocrit 51.5 % (37.0-53.0); Hemoglobin* 16.7 gm/dL (13.5-17.5); Immature Granulocytes Abs Auto 0.03 K/uL (0.00-0.30); Immature Granulocytes Pct Auto 0.4 %; Lymphocytes Percent Auto 30.3 % (20-44); Mean Corpuscular HGB Conc 32 gm/dL (32-36); Mean Corpuscular Hemoglobin 30 pg (26-34); Mean Corpuscular Volume 92 fL (80-100); Monocytes Percent Auto 10.9 % (0.0-11.0); Neutrophils Absolute Auto 3.73 K/uL (1.7-7.0); Neutrophils Percent Auto 51.5 % (42.0-72.0); Platelet Count* 279 K/uL (140-440); White Blood Count* 7.25 K/uL (4.50-11.00)
[2023-10-04 14:02] LABS: Slide Review Reflex No
[2023-10-04 14:24] LABS: Albumin* 4.6 g/dL (3.3-5.0); Chloride* 107 mmol/L (96-114); Sodium* 139 mmol/L (135-149)
[2023-10-04 14:25] LABS: Potassium* 4.2 mmol/L (3.6-5.1)
[2023-10-04 14:28] LABS: Alanine Aminotransferase* 23 U/L (4-50); Alkaline Phosphatase* 99 U/L (40-150); Anion Gap 6 mEq/L (7-15); Aspartate Amino Transferase* 23 U/L (12-35); Bilirubin Direct* 0.3 mg/dL (0.0-0.5); Bilirubin Total* 0.5 mg/dL (0.1-1.5); Blood Urea Nitrogen* 18 mg/dL (7-30); Calcium* 9.2 mg/dL (8.4-10.6); Carbon Dioxide* 26 mmol/L (20-32); Creatinine* 0.8 mg/dL (0.5-1.5); Est. Creatinine Clearance* 64.67; Estimated Glomerular Filt Rate 89 ml/min; Glucose* 93 mg/dL (60-115); Total Protein* 8.1 g/dL (6.0-8.3)
[2023-10-04 14:31] LABS: C Reactive Protein* < 0.5 mg/dL (0.5-1.0)
[2023-10-04] MEDS: 0.9 % SODIUM CHLORIDE 500 ML 500 ML IV (14:51)
[2023-10-04] MEDS: ASPIRIN 81 MG TAB.CHEW PO (15:18)
--- NOTE | 2023-10-04 16:41 | P.IMHP_ITS ---
Hospitalist- H&P: HPI History of Present Illness Date Seen: 10/04/23 Chief complaint: sudden onset confusion, memory issues Narrative: Brian Boo is a 78 year old man presents to our emergency department today with sudden onset confusion and disorientation. Yesterday he had a usual day with nothing unusual. This morning awakened feeling lightheaded and dizzy. noticed that he seemed to ask the same questions over and over again. She soon realized that he seemed to be having an episode similar to what he had in the past when he had transient global amnesia, most recently 06/02/22-06/04/22. Presently there was no trauma or injury; no fevers, rigors, diaphoresis; no ex posures or toxicity; no recent travel. He has a history of a concussion about a year ago. Is still being assessed and treated in the [facility] concussion clinic for the same, still working with vestibular stabilization techniques. Today in our emergency department there is a confirmation of his disorientation to place and time. CT scan of the head demonstrated no acute findings. CT angiogram of head and neck demonstrated no acute findings. Physician in the emergency department spoke with Dr. Gonzales, stroke neurologist, who recommended MRI of the head without and with contrast. Thus patient is admitted for observation, telemetry, neural assessments, MRI of the head tomorrow, PT and OT assessments tomorrow. Patient already on aspirin [address] Gonzales recommended this be continued. Review of Systems Status of ROS: Reports: 6 or more systems reviewed and unremarkable except as noted in History and below Narrative: Lives in the area most of the year and spends much of the summer in [place], [place], where he and his have a cabin. He is a retired school counselor. He designates his , Fatou, as his power of business attorney for health should that be required. Fatou's cell phone number is [phone]. He d esignates his daughter, Lara, as his secondary power of business attorney should that be required, cell phone number [phone]. He requests attempted full resuscitation in event of cardiopulmonary demise but adds that he does not wish to be kept alive in a persistent vegetative state should that come to pass. His and daughter are supportive of his decision in regard to resuscitation. [facility] Medical History (Updated 10/04/23 @ 17:17 by Carson Mcleod MD) Hypothyroidism ?E03.9 - Hypothyroidism, unspecified (ICD-10) Carotid atherosclerosis ?I65.29 - Occlusion and stenosis of unspecified carotid artery (ICD-10) Central sleep apnea due to Jack-Hirsch respiration ?R06.3 - Periodic breathing (ICD-10) Closed head injury ?S09.90XA - Unspecified injury of head, initial encounter (ICD-10) Complex sleep apnea syndrome ?G47.31 - Primary central sleep apnea (ICD-10) Concussion ?S06.0XAA - Concussion with loss of consciousness status unknown, initial encounter (ICD-10) Dyslipidemia ?E78.5 - Hyperlipidemia, unspecified (ICD-10) Fracture of multiple ribs ?S22.49XA - Multiple fractures of ribs, unspecified side, initial encounter for closed fracture (ICD-10) Ganglion cyst of right foot ?M67.471 - Ganglion, right ankle and foot (ICD-10) Peyronie's disease ?N48.6 - Induration penis plastica (ICD-10) 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 - Retinal micro-aneurysms, unspecified, right eye (ICD-10) Transient global amnesia ?G45.4 - Transient global amnesia (ICD-10) Cerebral microvascular disease ?I67.89 - Other cerebrovascular disease (ICD-10) Transient amnesia ?R41.3 - Other amnesia (ICD-10) Memory change ?R41.3 - Other amnesia (ICD-10) Epistaxis, recurrent ?R04.0 - Epistaxis (ICD-10) Erectile dysfunction ?N52.9 - Male erectile dysfunction, unspecified (ICD-10) History of electroencephalography ?Z92.89 - Personal history of other medical treatment (ICD-10) Hearing loss ?H91.90 - Unspecified hearing loss, unspecified ear (ICD-10) Fall ?W19.XXXA - Unspecified fall, initial encounter (ICD-10) Surgical History Status post hernia repair ?Z98.890 - Other specified postprocedural states (ICD-10) ?Z87.19 - Personal history of other diseases of the digestive system (ICD-10) History of colonoscopy ?Z98.890 - Other specified postprocedural states (ICD-10) Family History Mother Heart disease Father Stroke Family/Other Diabetes Social History Narrative: Medical Problems: Ganglion cyst of right foot 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 Hebert 08/12/17 note. Transient global amnesia See scanned 04/10/15 [facility] note. Carotid atherosclerosis Rodrigo bifurcations, mild. See scanned [facility] neuro note 04/10/15. Hypothyroidism Abstracted [facility] record. Dyslipidemia Abstracted [facility] record. Hearing loss Abstracted [facility] record. Peyronie's disease Abstracted [facility] record. Retinal microaneurysm, right eye Abstracted [facility] record. History of electroencephalogram 04/11/15, essentially normal. See scanned report. Surgical Problems: S/P hernia repair History of colonoscopy 11/20/10. Rcmnd 10Y repeat. No report, per [facility] record. What is your current living situation?: I presently have a place to live Problems where you live: no known problems In the past 12 months, utilities in danger of being shut off: no In past 12 months, lack of transportation kept you from medical appts, meetings, work, or getting things needed for daily living: no In the past 12 mos, have been you worried that your food would run out before you had money to buy more?: never true In the past 12 mos, the food you bought just didn't last and you didn't have money to buy more?: never true Highest level of school completed/degree received: Master's degree Smoking Status: Never smoker Second hand tobacco smoke exposure: No How often do you have a drink containing alcohol: 2-3 times a week Alcohol type: other Alcohol type details: Daryl santana AUDIT-C Alcohol total score: 3 Non-prescribed substance use: marijuana (any form) Caffeine: Yes How often does anyone, including family, friends and others, physically hurt you : never How often does anyone, including family, friends and others, insult or talk down to you: never How often does anyone, including family, friends and others, threaten you with harm: never How often does anyone, including family, friends and others, scream or curse at you: never Little interest or pleasure in doing things: not at all Feeling down, depressed, or hopeless: not at all service: Yes Meds Home Medications and Allergies Home Medications ?Medication ?Instructions ?Recorded ?Confirmed ?Type aspirin 81 mg tablet,delayed 81 mg PO DAILY 01/06/22 10/04/23 History release (Adult Aspirin Regimen) Home Medication Comments: fish oil supplement daily Allergies Allergy/AdvReac Type Severity Reaction Status Date / Time Sulfa (Sulfonamide Allergy Mild Hives Verified 03/11/23 09:49 Antibiotics) Exam Narrative: Exam Narrative: Examined patient in his hospital room, accompanied by his and daughter. He appears comfortable and in no acute distress. Vision and hearing are adequate. Alert and oriented to self, place, in part to time, in part to situation. According to and daughter he is slowly returning back to his baseline but still has not returned back to baseline. Friendly, articulate, cooperative. Follows simple 1 step and 2 step instructions. No focal motor neurologic deficits. Cranial nerves 3-12 are grossly normal, save he has some right lateral nystagmus which he has had for some time in association with a history of concussion. Independent in transfer, station, and gait. No tremor, asterixis, or ataxia. No concerns with rapid alternating movements. External auditory canals and tympanic membranes normal. Midline nasal septum. Normal buccal mucosa with dentition in good repair. Conjugate gaze. No JVD or hepatojugular reflux. No carotid bruits. Midline trachea. Supple neck. No head neck lymphadenopathy. Lungs clear to auscultation without wheezing, rhonchi, or rales. Chest wall excursions are full. No CVA tenderness. Heart tones with regular rhythm, with normal S1-S2, without murmur, gallop, or rub. PMI not laterally displaced. Abdomen with active bowel sounds, soft, nontender. No rebound, or guarding. No hepatosplenomegaly. Skin is warm, dry, intact. Palpable pulses upper and lower extremities. Capillary refill less than 3 seconds in upper and lower extremities. Const: Vital Signs, click to edit/add: Vital Signs - 24 hr 10/04/23 13:02 10/04/23 13:09 10/04/23 13:44 Temperature 97.3 F L Pulse Rate 71 Pulse Rate [Pulse Oximeter] 71 Respiratory Rate 16 Blood Pressure Blood Pressure [Ri ght Upper Arm] 191/93 H Pulse Oximetry 97 95 97 [facility] 10/04/23 14:02 10/04/23 14:18 10/04/23 14:30 Temperature Pulse Rate 70 66 Pulse Rate [Pulse Oximeter] Respiratory Rate Blood Pressure 175/97 H Blood Pressure [Ri ght Upper Arm] Pulse Oximetry 99 97 Oxygen Delivery [facility] 10/04/23 14:31 10/04/23 14:32 10/04/23 15:00 Temperature Pulse Rate 64 62 67 Pulse Rate [Pulse Oximeter] Respiratory Rate Blood Pressure 183/97 H Blood Pressure [Ri ght Upper Arm] Pulse Oximetry 97 97 97 Oxygen Delivery [facility] 10/04/23 15:02 10/04/23 15:30 10/04/23 15:31 Temperature Pulse Rate 70 58 L 66 Pulse Rate [Pulse Oximeter] Respiratory Rate Blood Pressure 160/94 H 171/101 H Blood Pressure [Ri ght Upper Arm] Pulse Oximetry 99 98 98 Oxygen Delivery [facility] Hospitalist - H&P: Result Labs Labs: Short CBC 10/04/23 Range/Units 13:21 WBC 7.25 (4.50-11.00) K/uL Hgb 16.7 (13.5-17.5) gm/dL Hct 51.5 (37.0-53.0) % Plt Count 279 (140-440) K/uL BMP 10/04/23 13:21 Sodium 139 Potassium 4.2 Chloride 107 Carbon Dioxide 26 BUN 18 Creatinine 0.8 Glucose 93 Calcium 9.2 Liver Function 10/04/23 Range/Units 13:21 Total Bilirubin 0.5 (0.1-1.5) mg/dL Direct Bilirubin 0.3 (0.0-0.5) mg/dL AST 23 (12-35) U/L ALT 23 (4-50) U/L Alkaline Phosphatase 99 (40-150) U/L Albumin 4.6 (3.3-5.0) g/dL ECG ECG interpretation date: 10/04/23 Interpretation: Normal sinus rhythm without ischemic or infarct pattern. Sinus arrhythmia. Imaging CT scan - head: Radiologist's impression: 1. No CT evidence of acute intracranial abnormality. 2. Senescent changes including generalized parenchymal volume loss and findings likely reflecting sequela of chronic small vessel ischemia. CT angiogram of head and neck: Radiologist's impression: Reported as unchanged from May of 2022. Assessment and Plan Assessment and plan (1) Transient global amnesia: Problem comment: -History of transient global amnesia 2018, 05/2022 -10/04/2023 as noted above. Discussed with stroke neurologist, Dr. Gonzales, who recommended repeat MR of head without and with contrast, cardiac monitoring, serial neurological assessments, PT and OT, and stroke neuro will reassess patient 10/05/2023 after MR results available. 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 Reviewed above impression and plan with patient and family. Answered their questions. 2. They are agreeable with above stated plans and recommendations Total Time Spent Total Time Spent: 65 minutes
--- NOTE | 2023-10-04 19:43 | PC.NURSE ---
End of Shift: The patient arrived to the floor this afternoon for new onset confusion this AM. The patient was orientated to place and self only upon assessment. Neuro assessment and orthostatic BPs were completed. Upon neuro assessment R eye nystagmus was noted and communicated to Dr Spain. Per the patient he has HX of concussions so he is in PT AND OT for that. Dr Spain thinks the nystagmus is related to this. MRI planned for tomorrow AM then Neuro consult after. The patient reported a headache as well but denied Tylenol for the headache. VS ON RA BUT QUITE HTN. Call light within reach. Up SBA, noted mild dizziness at times. Dr Spain just ordered a UA that needs to be collected. Nicole KIRBY BSN
--- NOTE | 2023-10-04 19:47 | PC.NURSE ---
Patients CPAP is here and needs to be inspected for use.
[2023-10-04 21:31] LABS: Appearance Urine Clear (Clear); Bilirubin Urine Negative (Negative); Blood Urine Negative (Negative); Color Urine Yellow (Yellow); Glucose Urine Negative (Negative); Ketones Urine Negative (Negative); Leukocyte Esterase Urine Negative (Negative); Nitrite Urine Negative (Negative); Protein Urine Negative (Negative); Specific Gravity Urine 1.015 (1.000-1.030); Urobilinogen Urine 0.2 (0.2-1.0)
[2023-10-04 21:46] LABS: Amphetamine Screen Urine Negative (Negative); Barbiturate Screen Urine Negative (Negative); Benzodiazepines Screen Urine Negative (Negative); Cannabinoid Screen Urine Negative (Negative); Cocaine Screen Urine Negative (Negative); Methadone Screen Urine Negative (Negative); Methamphetamines Screen Urine Negative (Negative); Opiate Screen Urine Negative (Negative); Oxycodone Screen Urine Negative (Negative); Phencyclidine Screen Urine Negative (Negative); Tricyclic Antidepressant Urine Negative (Negative)
[2023-10-05] VITALS (8 sets, daily range): BP systolic 140–179; BP diastolic 71–97; PULSE 64–78; RESP 18; TEMP 36.6–36.7; O2SAT 94–98
[2023-10-05] MEDS: LEVOTHYROXINE 125 MCG TABLET PO (06:50)
[2023-10-05 07:10] LABS: Cholesterol* 202 mg/dL (90-199)
[2023-10-05 07:11] LABS: HDL Cholesterol* 51 mg/dL (>=40); LDL Cholesterol Calculated 129 mg/dL (<100); Triglycerides* 111 mg/dL (40-149)
--- NOTE | 2023-10-05 07:53 | PC.NURSE ---
Pt alert and oriented x3. Afebrile. denies pain, SOB, Chest pain, and N/V.?Pt has equal strength in upper and lower extremities and facial?symmetry. Pt is up SBA, voiding, and slept with CPAP on throughout?night. ?
[2023-10-05] MEDS: ASPIRIN 81 MG TABLET EC PO (11:37)
[2023-10-05] MEDS: SODIUM CHLORIDE 0.9 % (FLUSH) 10 ML SYRINGE 5 ML IVF (11:37)
[2023-10-05 12:46] LABS: Hemoglobin A1C* 5.6 % (0-5.6)
--- NOTE | 2023-10-05 12:59 | P.DS_ITS ---
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 He was seen by Stroke Neurology who recommend continued ASA, Plavix x 90 days (after 90 days of dual antiplatelet therapy, back to ASA as monotherapy), statin, and antihypertensives as tolerated. TTE reassuring. Patient back to baseline on hospital day 1, cleared by therapies with no acute needs identified, requesting discharge home with and son and close PCP f/u. Status at Discharge Functional status at discharge: independent ambulation Overall status at discharge: patient is back to baseline Time Spent with Patient Time attestation: Total time spent providing and/or coordinating discharge services: Time spent: Greater than 30 minutes Exam Narrative: Exam Narrative: GEN: Alert and oriented, answering questions appropriately HEENT: PERRL and EOMIs bilaterally, tongue protrudes midline CV: RRR, No concerning murmurs, no carotid bruits R: LCTA bilaterally Ext: wwp, no concerning edema Skin: No concerning skin lesions or rashes on exposed skin Neuro: No focal deficits, negative Romberg, no dysmetria on [id number] testing, normal rapid alternating movements Psych: Appropriate Const: Vital Signs, click to edit/add: Vital Signs - 24 hr 10/04/23 13:02 10/04/23 13:09 10/04/23 13:44 Temperature 97.3 F L Pulse Rate 71 Pulse Rate [Pulse Oximeter] 71 Pulse Rate [Right Pulse Oximeter] Pulse Rate [orthos tatic lying] Pulse Rate [orthos tatic sitting] Pulse Rate [orthos tatic standing] Respiratory Rate 16 Blood Pressure Blood Pressure [Le ft Arm] Blood Pressure [Ri ght Upper Arm] 191/93 H Blood Pressure [or thostatic lying] Blood Pressure [or thostatic sitting] Blood Pressure [or thostatic standing ] Pulse Oximetry 97 95 97 Oxygen Delivery [facility] Room Air 10/04/23 14:02 10/04/23 14:18 10/04/23 14:30 Temperature Pulse Rate 70 66 Pulse Rate [Pulse Oximeter] Pulse Rate [Right Pulse Oximeter] Pulse Rate [orthos tatic lying] Pulse Rate [orthos tatic sitting] Pulse Rate [orthos tatic standing] Respiratory Rate Blood Pressure 175/97 H Blood Pressure [Le ft Arm] Blood Pressure [Ri ght Upper Arm] Blood Pressure [or thostatic lying] Blood Pressure [or thostatic sitting] Blood Pressure [or thostatic standing ] Pulse Oximetry 99 97 Oxygen Delivery Me thod 10/04/23 14:31 10/04/23 14:32 10/04/23 15:00 Temperature Pulse Rate 64 62 67 Pulse Rate [Pulse Oximeter] Pulse Rate [Right Pulse Oximeter] Pulse Rate [orthos tatic lying] Pulse Rate [orthos tatic sitting] Pulse Rate [orthos tatic standing] Respiratory Rate Blood Pressure 183/97 H Blood Pressure [Le ft Arm] Blood Pressure [Ri ght Upper Arm] Blood Pressure [or thostatic lying] Blood Pressure [or thostatic sitting] Blood Pressure [or thostatic standing ] Pulse Oximetry 97 97 97 Oxygen Delivery Me thod 10/04/23 15:02 10/04/23 15:30 10/04/23 15:31 Temperature Pulse Rate 70 58 L 66 Pulse Rate [Pulse Oximeter] Pulse Rate [Right Pulse Oximeter] Pulse Rate [orthos tatic lying] Pulse Rate [orthos tatic sitting] Pulse Rate [orthos tatic standing] Respiratory Rate Blood Pressure 160/94 H 171/101 H Blood Pressure [Le ft Arm] Blood Pressure [Ri ght Upper Arm] Blood Pressure [or thostatic lying] Blood Pressure [or thostatic sitting] Blood Pressure [or thostatic standing ] Pulse Oximetry 99 98 98 Oxygen Delivery Me thod 10/04/23 16:45 10/04/23 16:45 10/04/23 16:45 Temperature 98.5 F Pulse Rate Pulse Rate [Pulse Oximeter] Pulse Rate [Right Pulse Oximeter] 60 60 Pulse Rate [orthos tatic lying] Pulse Rate [orthos tatic sitting] Pulse Rate [orthos tatic standing] Respiratory Rate 18 Blood Pressure Blood Pressure [Le ft Arm] 192/99 H Blood Pressure [Ri ght Upper Arm] Blood Pressure [or thostatic lying] Blood Pressure [or thostatic sitting] Blood Pressure [or thostatic standing ] Pulse Oximetry 100 100 Oxygen Delivery [facility] Room Air Room Air 10/04/23 17:15 10/04/23 18:29 10/04/23 19:00 Temperature 98.1 F Pulse Rate 56 L Pulse Rate [Pulse Oximeter] Pulse Rate [Right Pulse Oximeter] 71 Pulse Rate [orthos tatic lying] 79 Pulse Rate [orthos tatic sitting] 82 Pulse Rate [orthos tatic standing] 79 Respiratory Rate 16 Blood Pressure Blood Pressure [Le ft Arm] 151/84 H Blood Pressure [Ri ght Upper Arm] Blood Pressure [or thostatic lying] 180/93 H Blood Pressure [or thostatic sitting] 165/86 H Blood Pressure [or thostatic standing ] 161/93 H Pulse Oximetry 94 Oxygen Delivery [facility] Room Air 10/04/23 20:40 10/04/23 20:40 10/04/23 23:51 Temperature 98.3 F Pulse Rate 69 Pulse Rate [Pulse Oximeter] Pulse Rate [Right Pulse Oximeter] 71 85 Pulse Rate [orthos tatic lying] Pulse Rate [orthos tatic sitting] Pulse Rate [orthos tatic standing] Respiratory Rate 16 Blood Pressure Blood Pressure [Le ft Arm] 174/95 H Blood Pressure [Ri ght Upper Arm] Blood Pressure [or thostatic lying] Blood Pressure [or thostatic sitting] Blood Pressure [or thostatic standing ] Pulse Oximetry 98 Oxygen Delivery [facility] Room Air 10/04/23 23:51 10/04/23 23:51 10/04/23 23:51 Temperature Pulse Rate 71 Pulse Rate [Pulse Oximeter] Pulse Rate [Right Pulse Oximeter] Pulse Rate [orthos tatic lying] Pulse Rate [orthos tatic sitting] Pulse Rate [orthos tatic standing] Respiratory Rate 16 16 Blood Pressure Blood Pressure [Le ft Arm] Blood Pressure [Ri ght Upper Arm] Blood Pressure [or thostatic lying] Blood Pressure [or thostatic sitting] Blood Pressure [or thostatic standing ] Pulse Oximetry 98 Oxygen Delivery [facility] Room Air 10/04/23 23:51 10/05/23 03:47 10/05/23 03:55 Temperature 98.0 F Pulse Rate Pulse Rate [Pulse Oximeter] Pulse Rate [Right Pulse Oximeter] 85 77 77 Pulse Rate [orthos tatic lying] Pulse Rate [orthos tatic sitting] Pulse Rate [orthos tatic standing] Respiratory Rate 18 Blood Pressure Blood Pressure [Le ft Arm] 179/89 H Blood Pressure [Ri ght Upper Arm] Blood Pressure [or thostatic lying] Blood Pressure [or thostatic sitting] Blood Pressure [or thostatic standing ] Pulse Oximetry 98 Oxygen Delivery [facility] Room Air 10/05/23 07:00 10/05/23 07:00 10/05/23 08:18 Temperature 97.8 F Pulse Rate Pulse Rate [Pulse Oximeter] Pulse Rate [Right Pulse Oximeter] 64 Pulse Rate [orthos tatic lying] 64 Pulse Rate [orthos tatic sitting] 78 Pulse Rate [orthos tatic standing] 68 Respiratory Rate 18 18 Blood Pressure Blood Pressure [Le ft Arm] 140/88 H Blood Pressure [Ri ght Upper Arm] Blood Pressure [or thostatic lying] 144/82 H Blood Pressure [or thostatic sitting] 140/88 H Blood Pressure [or thostatic standing ] 154/97 H Pulse Oximetry 94 94 Oxygen Delivery [facility] Room Air Room Air 10/05/23 08:26 10/05/23 11:39 Temperature 97.9 F Pulse Rate Pulse Rate [Pulse Oximeter] Pulse Rate [Right Pulse Oximeter] 64 70 Pulse Rate [orthos tatic lying] Pulse Rate [orthos tatic sitting] Pulse Rate [orthos tatic standing] Respiratory Rate 18 Blood Pressure Blood Pressure [Le ft Arm] 150/71 H Blood Pressure [Ri ght Upper Arm] Blood Pressure [or thostatic lying] Blood Pressure [or thostatic sitting] Blood Pressure [or thostatic standing ] Pulse Oximetry 98 Oxygen Delivery Me thod Nasal Cannula DS: Data Data Completed and Pending Labs on day of discharge: Labs from last 24 hours 10/05/23 10/05/23 10/04/23 12:20 06:10 21:25 WBC RBC Hgb Hct MCV MCH MCHC RDW Coeff of Sky Plt Count Neut % (Auto) Lymph % (Auto) Edwards % (Auto) Eos % (Auto) Baso % (Auto) Neut # (Auto) Lymph # (Auto) Edwards # (Auto) Eos # (Auto) Baso # (Auto) Abs Immat Gran (auto) Imm/Tot Granulo (auto) Sodium Potassium Chloride Carbon Dioxide Anion Gap BUN Creatinine Estimated Creat Clear Estimated GFR Glucose Hemoglobin A1c 5.6 Calcium Total Bilirubin Direct Bilirubin AST ALT Alkaline Phosphatase C-Reactive Protein Total Protein Albumin Triglycerides 111 Cholesterol 202 H LDL Cholesterol, Calc 129 H HDL Cholesterol 51 TSH 1.430 Urine Color Yellow Urine Appearance Clear Urine pH 7.0 Ur Specific Gerton 1.015 Urine Protein Negative Urine Glucose (UA) Negative Urine Ketones Negative Urine Blood Negative Urine Nitrite Negative Urine Bilirubin Negative Urine Urobilinogen 0.2 Ur Leukocyte Esterase Negative Urine Opiates Screen Negative Ur Oxycodone Screen Negative Urine Methadone Screen Negative Ur Barbiturates Screen Negative U Tricyclic Antidepress Negative Ur Phencyclidine Scrn Negative Ur Amphetamines Screen Negative U Methamphetamines Scrn Negative U Benzodiazepines Scrn Negative Urine Cocaine Screen Negative U Marijuana (THC) Screen Negative Ur Drug Screen Comment See Note Lab Acknowledgement Test Added POC Troponin I 10/04/23 10/04/23 13:48 13:21 WBC 7.25 RBC 5.60 Hgb 16.7 Hct 51.5 MCV 92 MCH 30 MCHC 32 RDW Coeff of Sky 13.0 Plt Count 279 Neut % (Auto) 51.5 Lymph % (Auto) 30.3 Edwards % (Auto) 10.9 Eos % (Auto) 6.5 Baso % (Auto) 0.4 Neut # (Auto) 3.73 Lymph # (Auto) 2.20 Edwards # (Auto) 0.80 Eos # (Auto) 0.47 Baso # (Auto) 0.03 Abs Immat Gran (auto) 0.03 Imm/Tot Granulo (auto) 0.4 Sodium 139 Potassium 4.2 Chloride 107 Carbon Dioxide 26 Anion Gap 6 L BUN 18 Creatinine 0.8 Estimated Creat Clear 64.67 Estimated GFR 89 Glucose 93 Hemoglobin A1c Calcium 9.2 Total Bilirubin 0.5 Direct Bilirubin 0.3 AST 23 ALT 23 Alkaline Phosphatase 99 C-Reactive Protein < 0.5 L Total Protein 8.1 Albumin 4.6 Triglycerides Cholesterol LDL Cholesterol, Calc HDL Cholesterol TSH Urine Color Urine Appearance Urine pH Ur Specific Gerton Urine Protein Urine Glucose (UA) Urine Ketones Urine Blood Urine Nitrite Urine Bilirubin Urine Urobilinogen Ur Leukocyte Esterase Urine Opiates Screen Ur Oxycodone Screen Urine Methadone Screen Ur Barbiturates Screen U Tricyclic Antidepress Ur Phencyclidine Scrn Ur Amphetamines Screen U Methamphetamines Scrn U Benzodiazepines Scrn Urine Cocaine Screen U Marijuana (THC) Screen Ur Drug Screen Comment Lab Acknowledgement POC Troponin I 0.00 L Discharge Plan Discharge Disposition: Home, Self-Care Date of Admission: 10/04/23 15:58 Attending Provider on Discharge: Daphnie Reno Primary Care Provider: Rafa Ventura Condition: Stable Anticipated Discharge Date/Time: 10/05/23 10:50 Discharge Medications: New atorvastatin 20 mg tablet 20 mg PO QHS Qty: 30 2RF lisinopril 2.5 mg tablet 2.5 mg PO DAILY Qty: 30 2RF clopidogrel 75 mg tablet 75 mg PO DAILY Qty: 30 2RF Continued levothyroxine [Synthroid] 125 mcg tablet 125 mcg PO DAILY Qty: 90 3RF aspirin [Adult Aspirin Regimen] 81 mg tablet,delayed release (DR/EC) 81 mg PO DAILY Discharge Orders: Discharge Order (Routine); Ordered 10/05/23 Ordered By: Carson Mcleod Patient Education: Aspirin (By mouth), Atorvastatin (By mouth), Clopidogrel (By mouth), Ischemic Stroke (DC) Additional Instructions: You had a tiny stroke in your hippocampus, likely the cause of your symptoms. Activity as tolerated (nothing strenuous). Medications: 81mg Aspirin daily, add in Atorvastatin 20mg at bedtime (sent to [place]) See Dr. Ventura as scheduled Activity Level: Light activity Discharge Diet: Low Fat/Low Cholesterol Follow Up Appointments: Rafa Ventura MD [Primary Care Provider] - 10/14/23 12:45 pm ([facility] for follow up with PCP) Forms: [employer] Info Instructions
--- NOTE | 2023-10-05 15:00 | CRLHL7_ITS ---
For Patients: As a result of the Century Cures Act, medical imaging exams and procedure reports are released immediately into your electronic medical record. You may view this report before your referring provider. If you have questions, please contact your health care provider. INDICATION: Stroke. TECHNIQUE: Brain MRI with and without contrast. 15 cc gadolinium based contrast administered. COMPARISON: Head CT from 10/04/2023. FINDINGS: A punctate focus of diffusion restriction within the left hippocampal head, compatible with an acute infarct. No recent ischemia elsewhere within the brain. No evidence of acute or chronic intracranial blood products. No mass or pathologic intracranial enhancement. Patchy FLAIR hyperintensities within the supratentorial white matter, typical for chronic microvascular ischemic change. No hydrocephalus or extra-axial collections. The pituitary gland, parasellar structures and optic chiasm are normal. Posterior fossa is normal. All the major intracranial vascular structures demonstrate normal flow-related signal. The orbital contents are normal. No calvarial or skull base marrow signal abnormality. Moderate mucosal thickening ethmoid air cells. Mild mucosal thickening maxillary sinuses. No extracranial soft tissue findings. IMPRESSION: 1. A punctate acute infarct within the left hippocampal head. No recent ischemia elsewhere within the brain. 2. No mass or pathologic intracranial enhancement. 3. Minimal chronic microvascular ischemic changes. Dictated by Christos White MD @ 10/05/2023 10:53:53 AM (Electronically Signed)
[2023-10-05] MEDS: CLOPIDOGREL 75 MG TABLET PO (15:39)
--- NOTE | 2023-10-05 18:49 | PC.NURSE ---
shift note: dc'd IV intact. Reviewed dc instructions and copies sent with pt at dc. Belongings reviewed and sent with pt.
== END 2023-10-05 18:50 | disposition home or self-care (01) ==
LOC: ED 15:05 → MEDSURG 16:00
PROVIDERS: Family Medicine; Admitting Provider Internal Medicine; Emergency Provider Family Medicine; PCP Family Medicine; Visit Provider Internal Medicine
DX: G45.4 Transient global amnesia (principal); I63.9 Cerebral infarction, unspecified; I67.89 Other cerebrovascular disease; R03.0 Elevated blood-pressure reading, without diagnosis of hypertension; G47.37 Central sleep apnea in conditions classified elsewhere; R06.3 Periodic breathing; R41.0 Disorientation, unspecified; F12.90 Cannabis use, unspecified, uncomplicated; E78.5 Hyperlipidemia, unspecified; E03.9 Hypothyroidism, unspecified; N52.9 Male erectile dysfunction, unspecified; H91.90 Unspecified hearing loss, unspecified ear; Z79.82 Long term (current) use of aspirin; Z92.89 Personal history of other medical treatment; Z87.19 Personal history of other diseases of the digestive system; Z98.890 Other specified postprocedural states
CPT/HCPCS: 36415; 70450; 70496; 70498; 70553; 80048; 80061; 80076; 80306; 81003; 83036; 84443; 84484; 85025; 86140; 93005; 93306; 94761; 96360; 97161; 97165; 97530; 99215; 99285; G0378; A9270; A9575; J7030; Q9967

== ENCOUNTER 2023-11-24 12:51 | Outpatient (CLI) | payer MEDICARE, SELFPAY ==
--- NOTE | 2023-11-24 13:00 | MR_ITS ---
[address] [address] Phone:?[phone] Fax:?[phone] Referring Physician Information: Van Peck M.D. [id number] [facility] [address] Phone:?[phone] Fax:?[phone] Patient:Alivia Boo D.O.B:?1945 Sex:?Male Phone:?[phone] [facility] MRN:?[id number] Exam Date:?11/24/2023 EXAM: MRI of the LEFT SHOULDER, without contrast CLINICAL: Evaluate for rotator cuff tear. COMPARISONS: None available. TECHNICAL: Multiplanar multisequence MRI of the left shoulder was obtained. SEDATION: None. CONTRAST: None. FINDINGS: Rotator cuff: Supraspinatus/Infraspinatus: There is full-thickness tearing of the distal supraspinatus tendon measuring approximately 16 mm in AP dimension with approximately 18 mm of proximal retraction of torn tendon fibers as seen on coronal series 4 images 7-10 and sagittal series 8 images 5-9. Attenuation and partial tearing of the remainder of the posterior distal supraspinatus tendon extending into the junction with the anterior distal infraspinatus tendon as seen on coronal series 4 images 11-13. Mild to moderate tendinosis of the distal infraspinatus tendon. No significant fatty atrophy of the muscle bellies. Teres minor: No tendinosis, tear or atrophy. Subscapularis: Minimal focal partial interstitial insertional tearing of the distal tendon as seen on axial series 3.2 images 45. No fatty atrophy of the muscle belly. Bursae: Subacromial-subdeltoid: Mild bursal fluid may be secondary to full-thickness supraspinatus tendon tearing. Subcoracoid: No significant bursal fluid. Coracoacromial arch: Acromion morphology: Type II. No os acromiale. Acromiohumeral space: Within normal limits. Coracohumeral space: Within normal limits. Biceps tendon, long head: Intraarticular and extraarticular segments intact without rupture, tendinopathy or displacement. Glenohumeral joint: Physiologic volume of joint fluid. Articular cartilage: No significant chondral loss. Capsule: There is irregularity and increased signal involving the inferior glenohumeral ligament which may be reflective of sprain injury but also can be seen in patients with adhesive capsulitis. Labrum: There is tearing of the superior labrum posterior to the biceps anchor as seen on coronal series 4 image 13-14. No additional discrete labral tear identified. No perilabral cyst identified. Bones: No suspicious marrow signal alteration, fracture or dislocation. Acromioclavicular joint: Moderate changes of arthrosis. No AC joint injury/widening. IMPRESSION: 1. Full-thickness tearing of the distal supraspinatus tendon with retraction of torn tendon fibers by approximately 18 mm. There is attenuation and partial tearing of the remaining posterior distal supraspinatus tendon extending into the junction with the anterior distal infraspinatus tendon. Mild to moderate tendinosis of the distal infraspinatus tendon. 2. Minimal focal partial interstitial insertional tearing of the distal subscapularis tendon. 3. Appearance of the inferior glenohumeral ligament which may reflect sequelae of sprain injury but also can be seen in patients with adhesive capsulitis. 4. Tearing of the superior labrum. 5. Moderate AC joint arthrosis. [facility] Electronically signed on 11/25/2023 9:33:00 AM by Shoaib Garcia D.O.
== END 2023-11-24 12:52 | disposition home or self-care (01) ==
LOC: MRI 12:53
PROVIDERS: PCP Family Medicine; Visit Provider Orthopaedic Surgery
DX: M25.512 Pain in left shoulder (principal); M75.102 Unspecified rotator cuff tear or rupture of left shoulder, not specified as traumatic; S46.912A Strain of unspecified muscle, fascia and tendon at shoulder and upper arm level, left arm, initial encounter; M75.02 Adhesive capsulitis of left shoulder; M19.012 Primary osteoarthritis, left shoulder
CPT/HCPCS: 73221

== ENCOUNTER 2024-01-19 07:15 | Day surgery (SDC) | payer MEDICARE, SELFPAY ==
[2024-01-19] VITALS (15 sets, daily range): BP systolic 115–158; BP diastolic 65–88; PULSE 49–71; RESP 16–18; TEMP 36.1–36.6; O2SAT 91–98; BMI 23.7
[2024-01-19] MEDS: EPINEPHrine 1 MG in SODIUM CHLORIDE IRRIG SOLUTION 3,000 ML 9003 MG IRRIGATION ×4 (07:30→08:30)
[2024-01-19] MEDS: OXYCODONE (CR) 10 MG TAB.ER.12H PO (07:47)
[2024-01-19] MEDS: ACETAMINOPHEN 500 MG TABLET 1000 MG PO (07:47)
[2024-01-19] MEDS: CELECOXIB 200 MG CAPSULE PO (07:47)
[2024-01-19] MEDS: SODIUM CHLORIDE 0.9 % (FLUSH) 10 ML SYRINGE IVF (07:48)
[2024-01-19] MEDS: 0.9 % SODIUM CHLORIDE 500 ML 500 ML 100 ML IV (08:50)
[2024-01-19] MEDS: MIDAZOLAM HCL 1 MG/ML inj IVP (08:51)
[2024-01-19] MEDS: fentaNYL 100 MCG/2 ML inj IVP (08:51)
--- NOTE | 2024-01-19 08:54 | SUR.PREOP ---
TIME?OUT:?0850 PT/RN/MDA?VERIFICATION?OF?SURGICAL?SITE Left Shoulder,?PROCEDURE Nerve Block,?AND?CONSENT OBTAINED?PRIOR?TO?INVASIVE?PROCEDURE.
[2024-01-19] MEDS: CEFAZOLIN 2 GM INJ IVP (09:32)
--- NOTE | 2024-01-19 10:54 | PM.ORPRC ---
Procedure Note Date of procedure: 01/19/24 Procedure: PREOPERATIVE DIAGNOSIS: Left shoulder rotator cuff tear, AC joint arthrosis POSTOPERATIVE DIAGNOSIS: Left shoulder rotator cuff tear, AC joint arthrosis NAME OF OPERATION: Left shoulder arthroscopic subacromial decompression, distal clavicle excision, mini open rotator cuff repair SURGEON: Van Peck MD EAR MACHINE OPERATOR: EFREN Morin ANESTHESIA: Supraclavicular block plus general endotracheal ESTIMATED BLOOD LOSS: 5 mL COMPLICATIONS: None SPECIMENS: None DRAINS: None PREOPERATIVE ANTIBIOTICS: Ancef 2 grams INDICATIONS: The patient is a 78-year-old with a history of left shoulder pain secondary to the above diagnoses. Despite appropriate non operative management, they continue to have symptoms. Operative intervention was recommended. The risks, benefits and expected outcomes were discussed in detail. These included but were not limited to: Infection, bleeding, injury to blood vessel or nerve, venous thromboembolism. All questions were answered to their satisfaction. PROCEDURE: A supraclavicular block was placed by Anesthesia. General anesthesia was administered. The patient was placed in the high beach chair position. The left shoulder was prepped and draped in the usual sterile fashion. The glenohumeral joint was infiltrated with 20 mL of normal saline with epinephrine. The posterior portal was established, the arthroscope was introduced. The anterior portal was established, Diagnostic arthroscopy was performed with findings as follows: The biceps and biceps anchor are intact. The anterior, posterior and superior labrum are normal. Articular surfaces on the humeral head and glenoid are normal. There are no loose bodies. There is a full-thickness tear of the supraspinatus. The arthroscope was placed in the subacromial space, the lateral portal was established. The Arthrex [place] was used to dissect the acromion free. The CA ligament was recessed off the anterior acromion, the AC joint was exposed. The acromioplasty was performed with the bur in the posterior portal. The bur was then placed in the lateral portal and the lateral and anterior aspect of the acromion were resected. The undersurface of the distal clavicle was resected through the lateral portal. Finally, the bur was placed in the anterior portal and the remainder of the distal clavicle was resected for a total of 10 mm. An accessory anterolateral portal was placed. The subacromial/subdeltoid bursa was aggressively debrided. There is a full-thickness tear of the supraspinatus. Arthroscopic instruments were removed. The accessory anterolateral portal was extended proximally and distally, subcutaneous dissection was taken with electrocautery to the deltoid. The deltoid was divided in line with its fibers. The static retractor was placed. The subacromial/subdeltoid bursa was debrided with the Rutledge scissors. The greater tuberosity was debrided to punctate bleeding bone using the arthroscopic bur. Two Arthrex BioComposite SwiveLock anchors were placed just off the articular surface. Both limbs of the FiberWire and fiber tape were passed using the scorpion. A fiber link was placed in the leading edge of the rotator cuff x 1. Two margin convergence sutures were placed. We tied the 2 central FiberWire sutures over the rotator cuff. We then proceeded with a lateral row of SwiveLock anchors x 2 crossing the FiberTape and incorporating the FiberWire and fiber link into each lateral row anchor. This provides a good repair of the rotator cuff. There is no tension on the repair with the shoulder at 0? abduction. The wound was irrigated with normal saline off the pump. The deltoid was repaired with an 0 Vicryl in an interrupted [id number] fashion. Subcutaneous tissues were closed with a 3-0 Vicryl. Skin was closed with a 3-0 Monocryl in a subcuticular fashion. A dry dressing and sling were applied. Sponge and needle counts were correct x2. The patient tolerated the procedure well. There were no apparent complications. They were carefully transferred to the hospital bed and taken to the postanesthesia care unit in satisfactory condition. PLAN: The patient will be discharged to home. No active range of motion of the shoulder will be allowed for 6 weeks postoperatively. They can work on active range of motion of the elbow, wrist and fingers. They will follow up in the office next week for a wound check and an AP and transscapular Y-view of the shoulder prior to being seen.
--- NOTE | 2024-01-19 11:16 | P.NB_ITS ---
Nerve Block Nerve Block Time Seen by Provider: 08:55 Date Seen: 01/19/24 Type of block requested by surgeon for post-operative analgesia: supraclavicular Side: left Time out performed: Yes Verification of patient name: Yes Verification of date of : Yes Site marking: site marked Name of person performing procedure: Wade Continuous monitoring Was continuous monitoring of O2 sat, B/P, electronic device monitor, recorded every 15 minutes?: Yes Procedure Checklist: sterile prep, needles and gloves Ultrasound guided. Images saved: Yes Medications given in 5ml increments after negative aspiration: Ropivicaine %: 0.5 mL: 20 Needle gauge: 22 Precedex (mcg): 25 Patient tolerated procedure well: Yes Block Charges Block Charge (with Pro Fee): Brachial Plexus Use of Ultrasound Machine for Block: Yes- US Guidance/pain block
--- NOTE | 2024-01-19 11:16 | W.ANESCHARGE ---
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
== END 2024-01-19 12:49 | disposition home or self-care (01) ==
LOC: OR 07:18
PROVIDERS: PCP Family Medicine; Visit Provider Orthopaedic Surgery
PROC: (CPT 23412; principal; 2024-01-19 09:15)
DX: M75.122 Complete rotator cuff tear or rupture of left shoulder, not specified as traumatic (principal); M19.012 Primary osteoarthritis, left shoulder; G89.18 Other acute postprocedural pain
CPT/HCPCS: 29826; 29824; 23412; 01630; 64415; 76942; 99100; A9270; C1713; J0171; J0690; J1100; J2250; J2371; J2405; J2704; J2710; J2795; J3010; J7030; L3670

== ENCOUNTER 2024-03-14 08:43 | Outpatient (CLI) | payer MEDICARE, SELFPAY | END 2024-03-14 08:44 | disposition home or self-care (01) | LOC: NFLDREF 11:14 | PROVIDERS: PCP Family Medicine; Referring Provider Family Medicine; Visit Provider Family Medicine | DX: E78.5 Hyperlipidemia, unspecified (principal); E03.9 Hypothyroidism, unspecified; I10 Essential (primary) hypertension; Z12.5 Encounter for screening for malignant neoplasm of prostate | CPT/HCPCS: 80053; 80061; 84443; G0103 ==

== ENCOUNTER 2024-04-13 13:45 | Outpatient (RCR) | payer MEDICARE, SELFPAY ==
--- NOTE | 2024-02-22 10:52 | PT.OPEX ---
PT [employer] Outpatient Eval PT [facility] Outpatient Eval Start: 02/22/24 08:46 Freq: Status: Active Protocol: Document 02/22/24 08:47 KIPTereza (Rec: 02/22/24 10:45 POONAM [id number]) E-signed By Xi Casas, PT Physical Therapy Outpatient Evaluation Insurance Information Recert Due Date 05/18/24 Insurance Name Medicare B Insurance Information/Comments AARP Medical Diagnosis S/P L RCR DOS: 01/18 Treating Diagnosis Left shoulder pain, limited shoulder ROM, gross UE weakness Referring MD Peck Subjective Subjective [place] is s/p 5 weeks L RCR ( supraspinatus) DOS: 01/18. Original injury occurred in 2002 when he fell onto his left shoulder in a hole. He treated this conservatively and always felt better after swimming. About 6 months ago shoulder really started hurting and impacting his ADLs . Notes pain was quite bad once the nerve block wore off but much more manageable now. Does note some tingling into his hand and occasional swelling in fingers however improves with doffing sling. He was supposed to see PT 2 times before now but had to miss them d/t traveling back to [place]. He has been doing elbow , wrist and hand ROM and wearing sling at all times except for these exercises. He will follow up with surgeon in about a week for 6 week check-up. Pain Comments 05/30 currently Date of Last Physician Visit 01/27/24 Date of Next Physician Visit 02/29/24 Date of Surgery (If applicable) 01/19/24 Current Work Status Retired Objective Other/Pertinent Objective Shoulder PROM L: -FF 75 -abd 50 -ER0 15 deg short of neutral Intact to light touch throughout L UE MMT deferred d/t s/p Seated posture: L shoulder protracted and depressed Functional Test Performed & Score QuickDASH: 72.7/100 Assessment Assessment/Impression Pt presents with signs and symptoms consistent with s/p L mini open RCR: supraspinatus. DOS: 01/19/24. Anticipated deficits/impairments in pain, ROM, and strength. Current PROM: FF 75, abd 50, ER0 15 deg short of neutral. Pt would benefit from skilled PT interventions to facilitate return to PLOF and return to functional use of L UE to perform ADLs and sleep throughout the night. Primary Functional Limitations reaching, lifting, pressing, pulling, sleeping, dressing, bathing Plan of Care Rehabilitation Potential Good Physical Therapy Goals Improve ER0 to 20 to improve ease of transfers and ADL's, by 8 weeks post op. Improve FF tolerance to increase ease of ADL's /daily care, by 8 weeks post op. Pt will tolerate gradual progression of AROM to facilitate progression through POC, by 10 weeks post op. Patient will exhibit full shoulder ROM, in order to facilitate greater ease with ADLs and progression through POC, by 12 weeks post op. Pt will exhibit RC and Scapular Stab strength of at least 4/5 to allow progression back to normal and desired activities without pain, by 20 weeks post op. Patient will be independent in self-management of shoulder and shoulder related symptoms, by 20 weeks post op. Treatment Plan/Direct Interventions Dry Needling,Ice/Cold/ Vasopneumatic,Joint Mobilization,Manual Therapy, Neuromuscular Re-ed,Self-Care/ Home Management,Therapeutic Activities,Therapeutic Exercises Frequency/Duration 1-2 times a week decreasing frequency as able over 6 month time period Patient Will Be Discharged From Therapy Completion of LTG(s), Independent w/HEP, Independently Progressing Evaluation Billing Untimed Code Treatment Minutes 20 Complexity Low Certification Information Initial Certification Date 02/22/24 Ending Certification Date 05/18/24 Provider Signature Required Yes Provider Signature Shows Agreement With POC & Medical Necessity Physician NPI Number Write NPI# Here Physician Comment/Change : Physician Signature & Date Requested Please Sign/Date Here
== END 2024-05-24 10:17 | disposition home or self-care (01) ==
PROVIDERS: PCP Family Medicine; Visit Provider Orthopaedic Surgery
DX: M75.102 Unspecified rotator cuff tear or rupture of left shoulder, not specified as traumatic (principal); M25.512 Pain in left shoulder; Z74.09 Other reduced mobility; R53.1 Weakness; Z98.890 Other specified postprocedural states; Z51.89 Encounter for other specified aftercare
CPT/HCPCS: 97110; 97112; 97140; 97161

== ENCOUNTER 2025-01-06 15:46 | Outpatient (CLI) | payer MEDICARE, SELFPAY ==
--- NOTE | 2025-01-06 16:00 | CRLHL7_ITS ---
For Patients: As a result of the Century Cures Act, medical imaging exams and procedure reports are released immediately into your electronic medical record. You may view this report before your referring provider. If you have questions, please contact your health care provider. INDICATION: Sensorineural hearing loss. COMPARISON: None. TECHNIQUE: Noncontrast CT of the rastafari bones. FINDINGS: Right: The right mastoid air cells and mastoid antrum are clear. Middle ear cavity is clear. Normal articulation of the ossicular chain. No opacification of sinus tympani. Normal tympanic membrane. The external auditory canal is patent. Tegmen tympani is intact. Normal mineralization of the otic capsule. Normal cochlea and vestibule. Normal internal auditory canal. 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 Small focal dehiscence cannot be excluded. Left: The left mastoid air cells and mastoid antrum are clear. Middle ear cavity is clear. Normal articulation of the ossicular chain. No opacification of sinus tympani. Normal tympanic membrane. The external auditory canal is patent. Tegmen tympani is intact. Normal mineralization of the otic capsule. Normal cochlea and vestibule. Normal internal auditory canal. Other: Mucosal thickening and fluid within the visualized ethmoid air cells. Mild mucosal thickening of the maxillary sinuses. IMPRESSION: 1. 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 Small focal dehiscence can not be excluded. 2. Otherwise, remaining right temporal bone structures are normal. 3. Normal left temporal bone structures 4. Mild sinus disease Please note that all CT scans at this facility use dose modulation, iterative reconstruction, and/or weight-based dosing when appropriate to reduce radiation dose to as low as reasonably achievable. Dictated by Virgilio Celis MD @ 01/09/2025 12:48:16 PM (Electronically Signed)
== END 2025-01-06 15:47 | disposition home or self-care (01) ==
LOC: CT 15:47
PROVIDERS: PCP Family Medicine; Visit Provider Otolaryngology
DX: H90.5 Unspecified sensorineural hearing loss (principal); J32.9 Chronic sinusitis, unspecified
CPT/HCPCS: 70480